=== PATIENT | male | born 1965 | race Caucasian/White ===

== ENCOUNTER 2023-05-23 23:16 | Emergency (ER) | payer MEDICAID, SELFPAY ==
[2023-05-23 23:46] VITALS: BP 141/91; PULSE 96; RESP 16; TEMP 37.1; O2SAT 98; BMI 21.5
[2023-05-24 02:00] VITALS: BP 176/96; PULSE 72; RESP 18; TEMP 36.7; O2SAT 98
--- NOTE | 2023-05-24 02:12 | ED.EAR ---
HPI - Ear Problem General Chief complaint: Ear Problems Stated complaint: ear inflammation Time Seen by Provider: 05/24/23 01:21 Source: patient Mode of arrival: ambulatory History of Present Illness HPI Narrative: 57-year-old male who arrives with bilateral swelling of pinnae and states that this has been ongoing for a week and a half and proximally a week and a half ago he went to [facility] for a similar issue, his ears were drained and a dressing was applied but then 2 days later patient noted that his ear started to swell up again. At this time he wants something for pain and is adamantly declining any blocks or injection of topical anesthetic for definitive drainage of the ears. Patient states that he will be following up with a ear, nose, throat specialist in the morning. Related Data Allergies Allergy/AdvReac Type Severity Reaction Status Date / Time No Known Allergies Allergy Unverified 01/10/20 15:40 bees Allergy Unknown Uncoded 03/16/11 00:00 Review of Systems Review of Systems: Pertinent positives and negatives as stated in HPI PMFSH Past Medical History Source: nursing notes reviewed Social History Social History Advance Directives: No Advance Directives Information Provided: No Physical Exam Vital Signs: Vital Signs: Last Vital Signs Temp 98.8 F 05/23/23 23:46 Pulse 96 05/23/23 23:46 Resp 16 05/23/23 23:46 BP 141/91 H 05/23/23 23:46 Pulse Ox 98 05/23/23 23:46 O2 Del Method Room Air 05/23/23 23:46 BMI result Body Mass Index 21.5 VITAL SIGNS: Reviewed. GENERAL: Well developed, well nourished, in no acute distress. HEAD: Normocephalic/atraumatic EYES: PERRLA, EOMI EARS: Ext canals without abnormality, TMs non-bulging and non-erythematous, but bilateral pinnae are edematous but not tense, no ecchymosis or other signs of trauma. NOSE: Nares patent bilateral OROPHARYNX: no oral lesions noted, posterior pharynx clear NECK: Supple, no adenopathy LUNGS: Normal breath sounds. No adventitious sounds or accessory muscle use. SpO2<98> CARDIOVASCULAR: Regular rate and rhythm without noted murmurs ABDOMEN: Soft, non-tender, non-distended with bowel sounds. MUSCULOSKELETAL: No tenderness, deformities, or effusions noted on gross inspection. EXTREMITIES: No cyanosis, clubbing or edema. SKIN: Inspection of the skin reveals no rashes NEUROLOGIC: Alert and oriented x 4. Strength and sensation to light touch were grossly intact x 4. Medical Decision Making Medical Decision Making MDM Narrative: 57-year-old male with atraumatic swelling of bilateral pinnae, patient is adamantly declining any acute intervention at this time and states that he will follow-up with a specialist in the morning, he otherwise is requesting pain medication and received 5 mg oxycodone. Differential Diagnosis Differential Diagnoses: The differential diagnosis associated with the presentation includes Please see the discussion above Admission/Observation Consideration of admission/observation: Escalation of care including admission/observation considered Please see the discussion above Discharge Plan Discharge Clinical Impression: Hematoma of both pinnae Patient Disposition: Home, Self-Care Instructions: Hematoma (ED) Additional Instructions: Please find the referral located below to follow-up with the Ear, Nose, Throat specialist in the morning. Referrals: Kristine Barber NP [Primary Care Provider] - Wil Yepez [Physician] -
[2023-05-24 02:19] VITALS: BP 171/92; PULSE 71
[2023-05-24] MEDS: oxyCODONE HCl Immed Release 5 MG TABLET PO (02:21)
--- NOTE | 2023-05-24 02:23 | PC.NURSE ---
pt medicated per jun. Dr. Desir aware of bp ok with d/c. pt axox4 ambulatory with steady gait. nad.
== END 2023-05-24 02:24 | disposition home or self-care (01) ==
PROVIDERS: Emergency Provider Student in an Organized Health Care Education/Training Program; PCP Nurse Practitioner
DX: S00.431A Contusion of right ear, initial encounter (principal); S00.432A Contusion of left ear, initial encounter; X58.XXXA Exposure to other specified factors, initial encounter; Y93.9 Activity, unspecified; Y92.9 Unspecified place or not applicable; Y99.9 Unspecified external cause status
CPT/HCPCS: 99283

== ENCOUNTER 2024-03-11 11:24 | Emergency (ER) | payer MEDICAID, SELFPAY ==
--- NOTE | 2024-03-11 11:29 | ED_ITS ---
HPI - Overdose General Chief Complaint: ETOH/Substance Use Stated Complaint: FOUND UNRESPONSIVE, DISORIENTED/?OD PER EMS Time Seen by Provider: 03/11/24 11:36 Source: patient and EMS Mode of arrival: EMS Limitations: no limitations History of Present Illness ED Provider: JONAS REECE PA-C HPI Narrative: 50-year-old male presents to the ED today via EMS after being found unresponsive. Per EMS, patient was found lying on the sidewalk by PD. Minimally responsive. EMS was called. Patient denying any illicit substances however in route to ED, EMS found a crack pipe and bag of heroin in patient's pocket. States that he was maintaining O2 saturation above 93% so Narcan was not given in route. No known trauma. On arrival in ED, patient dosing off however responsive to both verbal and occasionally painful stimuli. He admits to using heroin today. He is currently experiencing homelessness. Related Data Allergies Allergy/AdvReac Type Severity Reaction Status Date / Time No Known Allergies Allergy Verified 03/11/24 11:41 bees Allergy Unknown Anaphylaxis Uncoded 03/11/24 11:41 Review of Systems Review of Systems: Yes all other systems are reviewed and are negative [facility] Past Medical History Attestation statement: The following information was validated with the patient. Source: old records reviewed and nursing notes reviewed Social History Social History Advance Directives: No Advance Directives Information Provided: Yes Do you have a plan to hurt others: No Plan Physical Exam Vital Signs: Vital Signs: Last Vital Signs Pulse 92 03/11/24 11:39 Resp 12 03/11/24 11:39 BP 119/59 L 03/11/24 11:39 Pulse Ox 90 L 03/11/24 11:39 O2 Del Method Nasal Cannula 03/11/24 11:39 Oxygen Flow Rate 2 03/11/24 11:39 BMI result Body Mass Index 24.4 satting 90% on RA General: Disheveled, unkempt, dozing off Skin: Warm, dry, intact Head: Normocephalic, atraumatic. EENT: Hearing is intact b/l. Pinpoint pupils. Edentulous. ? Cardiac: Chest wall symmetric. RRR Lungs: Normal respiratory effort without accessory muscle use Back: No midline spinous or paraspinal tenderness. No step off deformity. Ext: Upper and lower extremities atraumatic, without tenderness, deformity, swelling or erythema Neuro: AOX3. responsive to verbal stimuli, occasionally painful stimuli when dozing off. Course Course Course Narrative: we gave him 0.2mg narcan now he is adamant he is leaving. he states he carries narcan with him. he absolutely refuses to stay, he is coherent he is aware he can overdose again but he will not stay for observation. He has no SI/HI. He states he has been through this before. He has no reason to section him and he is coherent and able to leave AMA. Medications Administered Discontinued Medications Generic Name Dose Route Start Last Admin Trade Name Joaquin PRN Reason Stop Dose Admin Naloxone HCl 0.2 mg 03/11/24 11:42 03/11/24 11:50 Naloxone Hcl 0.4 Mg/Ml Vial IVPUSH 03/11/24 11:43 0.2 mg STAT STA Administration Naloxone HCl 8 mg 03/11/24 11:52 03/11/24 11:58 Naloxone Hcl Nasal Take Home 4 Mg [place] NOSTRILALT 03/11/24 11:53 8 mg ONCE ONE Administration Ondansetron HCl 4 mg 03/11/24 11:32 03/11/24 11:49 Ondansetron Hcl 4 Mg/2 Ml Vial IVPUSH 03/11/24 11:33 4 mg ONCE ONE Administration Medical Decision Making Medical Decision Making MDM Narrative: 50-year-old male presents to the ED today via EMS after being found unresponsive. Vitals notable soft BP at 119/59, satting 90% on RA -- prior to narcan admin. refer to exam portion for findings. Differential diagnosis includes polysubstance abuse, drug overdose Plan for narcan admin and observation. Differential Diagnosis Differential Diagnoses: The differential diagnosis associated with the presentation includes as above. Admission/Observation Consideration of admission/observation: Escalation of care including admission/observation considered Considered for observation after narcan administration however patient adamant on leaving AMA. Social Determinants Patient?s care significantly limited by Social Determinants of Health including: Inadequate housing, Low income, Alcoholism and drug addiction in family, Problems related to primary support group, Problems related to employment and Other Social Determinant of Health Discharge Plan Discharge Clinical Impression: Overdose Patient Disposition: Left Against Medical Advice Instructions: Adult Overdose (ED) Additional Instructions: You were evaluated in the ED today after being found unresponsive. You were given Narcan in the ED today. You are declining further treatment or observation at this time and would like to leave the ED against medical advice. Please feel free to return to the ED with any new or worsening symptoms. You were provided with a take-home Narcan today. In the case of an emergency call 911. Stand Alone Forms: Against Medical Advice Print Language: Faroese
[2024-03-11 11:39] VITALS: BP 119/59; BP 145/77; PULSE 130; PULSE 92; RESP 12; O2SAT 90; BMI 24.4
[2024-03-11] MEDS: ondansetron HCL 4 MG/2 ML VIAL IVPUSH (11:49)
[2024-03-11] MEDS: Naloxone HCl 0.4 MG/ML VIAL 0.2 MG IVPUSH (11:50)
[2024-03-11] MEDS: Naloxone HCl Nasal TAKE HOME 4 MG SPRAY 8 MG NOSTRILALT (11:58)
[2024-03-11 12:20] VITALS: BP 0/0; PULSE 0; RESP 0; TEMP -17.7; TEMP 0
== END 2024-03-11 12:21 | disposition left against medical advice (07) ==
LOC: HO.ED 11:59
PROVIDERS: Emergency Provider Emergency Medicine; PCP Nurse Practitioner
DX: R40.4 Transient alteration of awareness (principal); T40.1X1A Poisoning by heroin, accidental (unintentional), initial encounter; Y92.480 Sidewalk as the place of occurrence of the external cause; F11.129 Opioid abuse with intoxication, unspecified; Z71.51 Drug abuse counseling and surveillance of drug abuser; Z59.00 Homelessness unspecified
CPT/HCPCS: 96374; 96375; 99284; J2310; J2405

== ENCOUNTER 2024-10-05 18:11 | Emergency (ER) | payer MEDICAID, SELFPAY ==
--- NOTE | ~2024-10-05 | XR_ITS ---
CLINICAL HISTORY: aspiration, OD, hypoxia 1 view chest x-ray Comparison: None Findings: Bilateral pulmonary opacities are nonspecific and may reflect pneumonitis and/or pulmonary edema. Pneumonitis favored at this time given asymmetry. Chronic lung disease with emphysematous changes also present. Mild elevation left hemidiaphragm. Cardiac silhouette and mediastinal contours are of the upper limits of the normal for AP technique. Calcified remnants of old granulomatous process noted in both hilar regions. Osseous structures are unremarkable for technique. IMPRESSION: Mild pulmonary opacities nonspecific and may reflect pneumonitis. Recommend attention on follow-up to ensure resolution. This document has been electronically signed by: Riky Bradley MD on 10/05/2024 19:12:18
[2024-10-05 18:18] VITALS: BP 160/100; PULSE 112
[2024-10-05 18:25] VITALS: PULSE 115; RESP 8; O2SAT 63; BMI 19.3
[2024-10-05] MEDS: Naloxone HCl Nasal 4 MG SPRAY NOSTRILALT (18:25)
--- NOTE | 2024-10-05 18:35 | ED.OVERDOSE ---
HPI - Overdose General Chief Complaint: Overdose Stated Complaint: drug use, no narcan given Time Seen by Provider: 10/05/24 18:26 History of Present Illness ED Provider: Gary Howe MD HPI Narrative: Came with EMS, OD felt to be opioid no naloxone in the field. Protecting airway but intermittently drowsy sleeping. Patient offers minimal history due to clinical condition complaint: accidental overdose Related Data Allergies Allergy/AdvReac Type Severity Reaction Status Date / Time No Known Allergies Allergy Verified 10/05/24 18:29 bees Allergy Unknown Anaphylaxis Uncoded 03/11/24 11:41 PENDING SALE TO [facility] Social History Social History Smoked in Last 30 Days: Yes Use of substances other than those prescribed or required for medical reasons: Yes Substance Use Type: Heroin Advance Directives: No Advance Directives Information Provided: Yes Physical Exam Vital Signs: Vital Signs: Last Vital Signs Temp 97.3 F 10/05/24 21:43 Pulse 72 10/05/24 21:43 Resp 16 10/05/24 21:43 BP 136/78 10/05/24 21:43 Pulse Ox 96 10/05/24 21:43 O2 Del Method Room Air 10/05/24 21:43 BMI result Body Mass Index 19.3 Const: Other: EXAM: Gen: Drowsy consistent with opioid toxidrome Head: Atraumatic Eyes: Pupils pinpoint ENT: Moist mucosa, no pallor. ? Neck: Supple. No obvious signs of trauma Skin: ?No observable rash or bruising on exposed or examined skin Respiratory: Slow breathing rate about 6 initially on arrival no crackles or wheeze Cardiovascular: Regular rate and rhythm. No murmurs or rub. Well perfused periphery, warm extremities. No edema. ? Abdominal: No FOCAL TENDERNESS. Soft, no objective distension. No palpable masses or obvious organomegaly. ?No guarding, no rebound tenderness or other peritoneal findings. : No flank tenderness. Neuro: Drowsy bradypnea MSK: No grossly visible deformity. Vital signs: See flowsheet Medications Administered Discontinued Medications Generic Name Dose Route Start Last Admin Trade Name Freq PRN Reason Stop Dose Admin Ibuprofen 600 mg 10/05/24 20:05 10/05/24 20:18 Ibuprofen 600 Mg Tablet PO 10/05/24 20:06 600 mg ONCE ONE Administration Naloxone HCl 4 mg 10/05/24 18:26 10/05/24 18:25 Naloxone Hcl Nasal 4 Mg [place] NOSTRILALT 10/05/24 18:27 4 mg ONCE ONE Administration Naloxone HCl 8 mg 10/05/24 21:21 10/05/24 21:38 Naloxone Hcl Nasal Take Home 4 Mg [place] NOSTRILALT 10/05/24 21:22 8 mg ONCE ONE Administration Medical Decision Making Medical Decision Making MDM Narrative: 59-year-old male with clear opioid toxidrome presentation upon my initial evaluation O2 60s I immediately administered 4 mg naloxone nasally and gave jaw thrust and oxygen supplementation he responded quite quickly inappropriately. He was monitored several hours after had a deescalation conversation with him because he wanted to leave the hospital immediately upon regaining consciousness. No obvious signs of injury. No clear metabolic derangement or other actionable findings on labs or workup. Naloxone to go pack Differential Diagnosis Differential Diagnoses: The differential diagnosis associated with the presentation includes Critical Care Time Critical Care Time Critical Care Time: Yes Total Critical Care Time: 30 Attestation: ED Critical Care: Acute hypoxic respiratory failure secondary to opioid overdose requiring parenteral naloxone reversal Authorized and Performed by: Gary Howe MD Total critical care time: Approximately 30 Due to a high probability of clinically significant, life threatening deterioration, the patient required my highest level of preparedness to intervene emergently and I personally spent this critical care time directly and personally managing the patient. This critical care time included obtaining a history; examining the patient; pulse oximetry; ordering and review of studies; arranging urgent treatment with development of a management plan; evaluation of patient's response to treatment; frequent reassessment; and, discussions with other providers. This critical care time was performed to assess and manage the high probability of imminent, life-threatening deterioration that could result in multi-organ failure. It was exclusive of separately billable procedures and treating other patients and teaching time. Discharge Plan Discharge Clinical Impression: Drug overdose Patient Disposition: Home, Self-Care Instructions: Adult Overdose (ED) Referrals: [facility] – [place] [facility] [Provider Group] Referral Note: Call for substance use disorder resources Interventions: ED Discharge Assessment Last Done: 10/05/24 21:43 Discharge Date/Time: 10/05/24 21:44 Print Language: Ivorian
[2024-10-05 20:00] VITALS: BP 136/78; PULSE 72; RESP 16; TEMP 36.3; O2SAT 96
[2024-10-05] MEDS: Ibuprofen 600 MG TABLET PO (20:18)
--- NOTE | 2024-10-05 21:07 | MHC.EDTECH ---
Patient refused to give urine and do blood work FROILAN Olvera
[2024-10-05] MEDS: Naloxone HCl Nasal TAKE HOME 4 MG SPRAY 8 MG NOSTRILALT (21:38)
--- NOTE | 2024-10-05 21:40 | PC.NURSE ---
pt d/c with x2 narcan and d/c instructions. Pt understands and walked out on his own with steady gate.
[2024-10-05 21:43] VITALS: BP 136/78; PULSE 72; RESP 16; TEMP 36.3; O2SAT 96
== END 2024-10-05 21:44 | disposition home or self-care (01) ==
PROVIDERS: Emergency Provider Emergency Medicine; PCP Internal Medicine
DX: T50.901A Poisoning by unspecified drugs, medicaments and biological substances, accidental (unintentional), initial encounter (principal); J96.91 Respiratory failure, unspecified with hypoxia; Y92.9 Unspecified place or not applicable
CPT/HCPCS: 71045; 99285

== ENCOUNTER → 2024-10-05 18:26 | Outpatient (BNV) | payer MEDICAID, SELFPAY | PROVIDERS: Emergency Provider Emergency Medicine; PCP Internal Medicine; Visit Provider Radiology Neuroradiology | DX: J69.0 Pneumonitis due to inhalation of food and vomit (principal); T50.901A Poisoning by unspecified drugs, medicaments and biological substances, accidental (unintentional), initial encounter; R09.02 Hypoxemia | CPT/HCPCS: 71045 ==

== ENCOUNTER 2024-10-30 15:06 | Emergency (ER) | payer MEDICAID, SELFPAY ==
--- NOTE | 2024-10-30 15:12 | ED_ITS ---
HPI - General Adult General Chief complaint: Overdose Stated complaint: OD/CRACK,NARCAN GIVEN W/GOOD RESULT Time Seen by Provider: 10/30/24 15:12 Source: patient and EMS Mode of arrival: EMS Limitations: no limitations History of Present Illness ED Provider: Aida Ivey PA-C HPI narrative: Patient is a 59 year old assigned male at with a history of opiate abuse / use presenting to the emergency department today after an accidental overdose. Patient states that he ingested 2 bags of heroin and was given Narcan by EMS. Patient states that he does not have any interest in remaining in the hospital or speaking with the recovery team. Patient states that he does not want a safe use kit because he does not use via IV. Patient states that he is willing to take Narcan with him. Patient denies any dizziness, lightheadedness, abdominal pain, nausea, vomiting, fever, chills, blurry vision, double vision, loss of vision, chest pain, difficulty breathing, shortness of breath, back pain, night sweats, pain with urination, increased urinary frequency, increased urinary urgency, blood in his urine or stool, syncope or a near syncopal episode, recent trauma or falls, bowel incontinence, bladder incontinence, or any other complaints at this time. Relieving factors: none Exacerbating factors: none Associated symptoms: denies other symptoms Treatments prior to arrival: other (6mg of Narcan) Related Data Allergies Allergy/AdvReac Type Severity Reaction Status Date / Time No Known Allergies Allergy Verified 10/30/24 15:24 bees Allergy Unknown Anaphylaxis Uncoded 10/30/24 15:24 Review of Systems Constitutional: Constitutional: Reports no additional constitutional complaints, Denies chills, Denies fever(s) and Denies night sweats Eyes: Eyes: Reports no additional eye complaints, Denies blurry vision, Denies change in vision, Denies diplopia, Denies eye discharge, Denies loss of vision and Denies eye pain ENT: Denies dizziness Cardiovascular: Cardiovascular: Reports no additional cardiovascular complaints, Denies chest pain, Denies lightheadedness, Denies Loss of Consciousness and Denies dyspnea Respiratory: Respiratory: Reports no additional respiratory complaints and Denies dyspnea Gastrointestinal: Gastrointestinal: Reports no additional gastrointestinal complaints, Denies abdominal pain, Denies melena, Denies hematochezia, Denies change in bowel habits and Denies change in stool character Genitourinary: Genitourinary: Reports no additional male genitourinary complaints, Denies hematuria, Denies oliguria, Denies difficulty urinating, Denies dysuria, Denies urinary frequency, Denies urinary hesitancy, Denies urinary incontinence and Denies urinary urgency Musculoskeletal: Musculoskeletal: Reports no additional musculoskeletal complaints, Denies numbness and Denies tingling Neurologic: Denies dizziness, Denies loss of vision, Denies numbness and Denies tingling Psychiatric: Psychiatric: Reports no additional psychiatric complaints Endocrine: Endocrine: Reports no additional endocrine complaints Hematologic/Lymphatic: Hematologic/Lymphatic: Reports no additional hematologic/lymphatic complaints Allergic/Immunologic: Allergic/Immunologic: Reports no additional allergic/immunologic complaints PMFSH Past Medical History Attestation statement: The following information was validated with the patient. Source: old records reviewed and nursing notes reviewed Social History Social History Substance Use Type: Heroin Do you have a plan to hurt others: No Plan Physical Exam ED Vital Signs: Vital Signs - 24 hr 10/30/24 15:20 Temperature 98.0 F Pulse Rate 85 Respiratory Rate 18 Blood Pressure 119/85 Pulse Oximetry 97 Oxygen Delivery Method Room Air BMI result Body Mass Index 21.6 Const General: cooperative, no acute distress, alert and awake Nutritional Appearance: well nourished Orientation/consciousness: patient oriented x3 HENMT Head: Yes normal to inspection and Yes atraumatic Ears: hearing grossly normal bilaterally and external ears normal General nose exam: Normal external nose present, no nasal discharge noted and no epistaxis Face and sinus: Yes normal facial exam, No abrasion and No laceration Mouth: Normal oral and palatal mucosa present, no drooling and no muffled voice Eyes General: appearance normal, both eyes and all related structures Periorbital: periorbital findings normal Eyelids: Yes eyelids normal Conjunctivae: conjunctivae normal Pupils: Equal, round and reactive pupils present EOM: EOMs intact bilaterally Neck Neck: Yes normal visual inspection, Yes full ROM and Yes no lymphadenopathy Resp Effort & Inspection: normal respiratory effort and able to speak in complete sentences Neuro General: patient oriented x3, moves all extremities and CN's II-XI intact bilaterally Cranial nerves: Yes Equal, round and reactive pupils present Cognition (Neuro): normal cognition Extrem General: Yes normal to inspection, Yes full ROM and Yes capillary refill normal Psych Appearance: grossly normal Mental Status: mental status grossly normal Affect: normal affect Attitude: cooperative Thought process: Normal thought process present Thought content: Normal thought content present Insight: Good insight present (Psych) Medical Decision Making Medical Decision Making MDM Narrative: Patient is a 59 year old assigned male at with a history of opiate abuse / use presenting to the emergency department today after an accidental overdose. Patient's physical exam was unremarkable. I explained my physical exam findings to the patient. I answered all questions asked by the patient. Patient declined speaking to the recovery team or CARE team. Patient declined any assistance other than Narcan. I stressed the importance of the patient taking his medication as directed (either prescribed or as the over the counter packaging recommends). I stressed the importance of the patient following up with his primary care provider. I stressed the importance of the patient returning to the emergency department immediately if his symptoms were to worsen or if he were to develop any dizziness, shortness of breath, difficulty breathing, chest pain, blurry vision, loss of vision, nausea, vomiting, abdominal pain, fever, chills, back pain, or any other complaints. Patient verbalized agreement and understanding with this treatment plan and discharge. Differential Diagnosis Differential Diagnoses: The differential diagnosis associated with the presentation includes Overdose Accidental overdose Admission/Observation Consideration of admission/observation: Escalation of care including admission/observation considered Patient would have been admitted to the hospital had his clinical presentation warranted hospital admission. Independent Historian Clinical information obtained from an independent historian. History obtained from or confirmed by: EMS (EMS provided additional history and confirmed the history provided by the patient. ) Discharge Plan Discharge Clinical Impression: Opiate overdose Qualifiers: Encounter type: initial encounter Injury intent: accidental or unintentional Qualified Code(s): T40.601A - Poisoning by unspecified narcotics, accidental (unintentional), initial encounter Patient Disposition: Home, Self-Care Instructions: Opioid Safety (ED), Opioid Use Disorder (ED) Additional Instructions: You were seen in our Emergency Department today for treatment of opiate use disorder. You were given naloxone (narcan) to take home with you. This medication is used to potentially treat opiate overdose. If you decide you want to stop or cut down on how much you?re using, you can call or walk into our outpatient Addiction Treatment office: [facility] (M-F 9am-5p) [address] [place] [address], [address] You were also provided a list of several treatment providers in the area.? If you experience any worsening symptoms you cannot control please return to the ED or call 911. Follow up with a primary care provider. Return to the emergency department immediately if you develop any numbness, tingling, dizziness, shortness of breath, difficulty breathing, chest pain, blurry vision, loss of vision, nausea, vomiting, abdominal pain, fever, chills, back pain, or any other complaints. If you do not have a primary care provider - call any of the below numbers to establish and follow up with a primary care provider. [facility] ([place]) [phone] [place] [address], [address] [facility] ([address] [place]) [phone] [place] [address], [address] [facility], [address] [facility] ([address] [place]) [phone] [place] [address], [address] [facility], [address] [facility] ([place]) [phone] [place] [address], [address] [facility], [address] [facility] Family Medicine [phone] [address] [facility], [address] Please see the information below about our Patient Portal. If you are not yet enrolled in the [facility] Patient Portal, you will receive an enrollment email invitation following your visit to any [facility] [place] care setting. You may also self-enroll in the Patient Portal by visiting our website: [email or web address] The following information is required to access the Patient Portal: - Your [facility] Medical Record Number - Your personal home email address (must match what is in your electronic medical record, Registration staff can assist with this) - Name - Date of Capabilities of the Patient Portal: - Message some providers - View upcoming appointments - Access your health summary, medical history, and visit history - View current conditions and allergies - View procedure and lab results - View your medications, including guidelines, side effects, and precautions - Complete pre-appointment questionnaires requested by your provider - Ready summary reports of your office visits and procedures To access the Patient Portal Mobile [employer], follow these directions: - Search [employer] in the [employer] Store or [employer] Store - Download the [employer] - Search for [facility] - Enter your login/password Print Language: Kazakh
[2024-10-30 15:20] VITALS: BP 119/85; BP 136/76; PULSE 108; PULSE 85; RESP 18; TEMP 36.7; O2SAT 97; O2SAT 98; BMI 21.6
[2024-10-30 15:32] VITALS: BP 119/85; PULSE 85; RESP 18; TEMP 36.7; O2SAT 97
[2024-10-30] MEDS: Naloxone HCl Nasal TAKE HOME 4 MG SPRAY 8 MG NOSTRILALT (15:32)
== END 2024-10-30 16:00 | disposition home or self-care (01) ==
LOC: HO.ED 15:39
PROVIDERS: Emergency Provider Emergency Medicine Emergency Medical Services; PCP Internal Medicine
DX: T40.1X1A Poisoning by heroin, accidental (unintentional), initial encounter (principal); F11.10 Opioid abuse, uncomplicated; Y92.9 Unspecified place or not applicable
CPT/HCPCS: 99282; 99283

== ENCOUNTER 2024-11-18 23:39 | Inpatient (IN) | payer MEDICAID, SELFPAY ==
--- NOTE | ~2024-11-18 | XR_ITS ---
CLINICAL HISTORY: sob 1 view chest x-ray Comparison: CR - XR CHEST 1V - 10/05/24 18:36 EDT Findings: Right basilar opacity concerning for pneumonia. Trace right pleural effusion. No pneumothorax. Heart size is normal. No acute fracture. IMPRESSION: Right basilar opacity concerning for pneumonia with trace right pleural effusion This document has been electronically signed by: Tong Martinez MD on 11/19/2024 00:22:50
[2024-11-18 23:45] VITALS: BP 128/101; BP 142/100; PULSE 65; PULSE 90; RESP 16; TEMP 36.6; O2SAT 98; O2SAT 99; BMI 24.2
--- NOTE | 2024-11-18 23:49 | ECG_ITS ---
Test Reason : SOB Blood Pressure : */* mmHG Vent. Rate : 62 BPM Atrial Rate : 62 BPM P-R Int : 118 ms QRS Dur : 92 ms QT Int : 504 ms P-R-T Axes : 73 36 -30 degrees QTcB Int : 511 ms Normal sinus rhythm T wave abnormality, consider anterior ischemia Abnormal ECG When compared with ECG of 06-May-2013 08:28, Vent. rate has decreased by [address] no longer depressed in Anterior leads Nonspecific T wave abnormality now evident in Inferior leads T wave inversion now evident in Anterior leads Referred By: Generic ED Physician Electronically Signed By: LUIS MIGUEL QUINTANILLA MD
[2024-11-19] VITALS (11 sets, daily range): BP systolic 102–168; BP diastolic 70–101; PULSE 65–94; RESP 12–22; TEMP 36.6–36.8; O2SAT 95–99
[2024-11-19] LABS: MANUAL DIFF FLAG NO
[2024-11-19 00:01] LABS: Hematocrit 38.2 % (42.0-52.0); Hemoglobin 12.3 g/dl (14.0-18.0); Imm Gran Abs Auto 0.04 X10*3/uL (0.00-0.03); Imm Gran Pct Auto 0.3 % (0.0-0.4); Lymphocytes Absolute Auto 1.4 X10*3/uL (1.2-4.9); Mean Corpuscular HGB Conc 32.2 g/dl (31.0-36.0); Mean Corpuscular Hemoglobin 29.3 pg (27.0-33.0); Mean Corpuscular Volume 91.0 fL (80.0-98.0); NRBC Abs Auto 0.000 X10*3/uL (0.0-0.012); NRBC Pct Auto 0.0 /100WBC (0.0-0.2); Platelet Count 479 X10*3/uL (160-400); Red Blood Count 4.20 X10*6/uL (4.60-5.80); White Blood Count 13.5 X10*3/uL (4.8-10.8)
[2024-11-19 00:14] LABS: Anion Gap 15 (12-20); Blood Urea Nitrogen 22 mg/dL (9-16); Calcium 7.7 mg/dL (8.4-10.2); Carbon Dioxide 22 mmol/L (22-29); Chloride 106 mmol/L (96-108); Creatinine Clr Calc Pharmacy 84.3; Estimated Glomerular Filt Rate > 60; Magnesium 1.7 mg/dL (1.6-2.6); Potassium 4.1 mmol/L (3.3-5.1); Sodium 139 mmol/L (135-145)
[2024-11-19 00:20] LABS: Troponin-I High Sensitivity 30.9 ng/L (<3.5-35.0)
[2024-11-19 00:37] LABS: Resp Syncy Virus RNA Qual PCR NEGATIVE (Negative); SARS COV2 PCR INHOUSE NEGATIVE (Negative)
[2024-11-19] MEDS: Albuterol Sulfate 5 MG, Albuterol Sulfate (0.083%) 2.5 MG 7.5 MG INHALE (00:40)
[2024-11-19 00:50] LABS: B Type Natriuretic Peptide 4571 pg/mL (<100)
[2024-11-19 01:07] LABS: Venous Blood Gas Refer to POC result
[2024-11-19 01:11] LABS: VBG HCO3 25 mmol/L (22-26); VBG O2 % Saturation 71.0 %
--- NOTE | 2024-11-19 01:24 | ED_ITS ---
HPI - SOB/Dyspnea General Chief Complaint: Dyspnea Stated Complaint: SOB Time Seen by Provider: 11/19/24 00:05 Source: patient and EMS Mode of arrival: EMS Limitations: no limitations History of Present Illness ED Provider: Dr. Anna Harmon HPI Narrative: Patient comes to the emergency room complaining of shortness of breath, states that he has been coughing all day today and wheezing. According to the patient, he does not have history of asthma or COPD or CHF When patient came, he was given a nebulization treatment. Patient states that he feels a bit better. But patient states that if he gets up and walks, he feels extremely short of breath within walking a few steps. Patient denies any chest pain. Related Data Allergies Allergy/AdvReac Type Severity Reaction Status Date / Time bees Allergy Unknown Anaphylaxis Uncoded 11/18/24 23:47 Review of Systems 2 Review of Systems: Constitutional : No Weight loss, No Fever, No Chills, No Night Sweats, No Fatigue, No Malaise ENT/Mouth : No Hearing loss, No Ear Pain, No Nasal Congestion, No Sinus Pain, No Hoarseness, No sore throat, No Rhinorrhea, No Swallowing Difficulty Eyes: No Eye Pain, No Swelling, No Redness, No Foreign Body, No Discharge, No Vision Changes Cardiovascular : No Chest Pain, complaining of shortness of breath much worse with exertion, complaining of orthopnea Respiratory : Complaining of cough, wheezing and shortness of breath Gastrointestinal : No Nausea, No Vomiting, No Diarrhea, No Constipation, No abdominal Pain, No Hematochezia, No Melena Genitourinary : no irregular bleeding, No Dysuria, No Urinary Frequency, No Hematuria, No Urinary Incontinence, No Urgency, No Flank Pain, No Urinary Flow Changes, No Hesitancy Musculoskeletal : No joint pain, No Myalgias, No Joint Swelling Skin : No Skin Lesions, No rash Neuro : No Weakness, No Numbness, No Paresthesias, No Loss of Consciousness, No Dizziness, No Headache Psych : No Anxiety/Panic, No Depression, No SI/HI/AH/VH, No Social Issues, Heme/Lymph: No Bruising, No Bleeding,No Lymphadenopathy Endocrine : No Polyuria, No Polydipsia, No Temperature Intolerance PMFSH Social History Social History Use of substances other than those prescribed or required for medical reasons: Yes Substance Use Type: Crack/Cocaine and Heroin Substance Use Frequency: Chronic Longstanding Advance Directives: No Advance Directives Information Provided: No Physical Exam 2 Exam: Exam: Appearance: Alert. Oriented X3. No acute distress. Eyes: Pupils equal, round and reactive to light. ENT: Pharynx normal. Neck: Normal inspection. Neck supple. No lymph nodes noted. No crepitus CVS: Normal heart rate and rhythm. Pulses normal. Normal S1 and S2 Respiratory: No respiratory distress. Bilateral wheezing, bilateral lower lobe crackles, no rales Abdomen: Soft and nontender. No rigidity. No distention. Skin: Skin warm and dry. Normal skin color. Normal skin turgor. Extremities: +1 pitting edema bilaterally No Lacerations. No Rash Neuro: Oriented X 3. No motor deficit. No sensory deficit. Moving all extremities. No slurred speech. CN 2 through 12 grossly intact Psych: calm, cooperative, normal affect Vital Signs: Vital Signs: Last Vital Signs Temp 97.9 F 11/19/24 00:06 Pulse 65 11/19/24 00:06 Resp 16 11/19/24 00:06 BP 128/101 H 11/19/24 00:06 Pulse Ox 99 11/19/24 00:06 O2 Del Method Room Air 11/19/24 00:06 BMI result Body Mass Index 24.2 Course Course Course Narrative: Patient comes in complaining of shortness of breath, cough, wheezing. To patient's knowledge, he has never been diagnosed with either COPD or CHF. Patient admits that he smokes All of patient's labs pending Patient receiving IV fluids, Solu-Medrol, magnesium, antibiotics. Medications Administered Generic Name Dose Route Start Last Admin Trade Name Freq PRN Reason Stop Dose Admin Azithromycin 500 mg/ Sodium 250 mls @ 125 mls/hr 11/19/24 00:23 11/19/24 00:59 Chloride IV 11/19/24 02:22 125 mls/hr ONCE ONE Administration Discontinued Medications Generic Name Dose Route Start Last Admin Trade Name Freq PRN Reason Stop Dose Admin Albuterol Sulfate 5 mg/ 7.5 mg 11/19/24 00:38 11/19/24 00:40 Albuterol Sulfate 2.5 mg INHALE 11/19/24 00:39 7.5 mg ONCE ONE Administration Ceftriaxone Sodium 1 gm 11/19/24 00:23 11/19/24 00:56 Ceftriaxone Sodium 1 Gm Vial IVPUSH 11/19/24 00:24 1 gm ONCE ONE Administration Sodium Chloride 1,000 mls @ 999 mls/hr 11/19/24 00:23 11/19/24 01:02 Ns IVCONT 11/19/24 01:23 Infused .Q1H1M ONE Infusion Methylprednisolone Sodium Succinate 125 mg 11/19/24 00:23 11/19/24 00:55 Methylprednisolone Sod Succ 125 Mg/2 Ml Vial IVPUSH 11/19/24 00:24 125 mg ONCE ONE Administration Medical Decision Making Medical Decision Making [facility] Narrative: My interpretation of labs: Patient's white blood cell count 13.5, no significant abnormality in patient's electrolytes, lactic 2.3. Likely secondary to nebulization treatments. Patient's BNP is 4571. Patient's fluids were started however, when we got the results for the BNP, they were discontinued. Patient already received antibiotics and the steroids and Mag. Patient states that he is starting to feel better. Patient states that he feels very reluctant about trying to get up and walk because he knows he feels short of breath rapidly and takes him a long time to recover. X-ray show right basilar opacity concerning for pneumonia and trace right pleural effusion. Patient states that he has never had an echocardiogram, does not have a PCP, patient is homeless. I discussed the above-mentioned with Dr. Godoy from the Medicine team, patient being admitted Differential Diagnosis Differential Diagnoses: The differential diagnosis associated with the presentation includes (New onset COPD, new onset CHF, pneumonia) Admission/Observation Consideration of admission/observation: Escalation of care including admission/observation considered Consult Healthcare Provider Management of the patient was discussed with: Hospitalist Lab Data [facility] Lab Attestation statement: I reviewed the patient's lab results. 11/18/24 23:54 11/18/24 23:54 Labs: Lab Results 11/18/24 11/18/24 11/19/24 Range/Units 23:54 23:56 00:42 WBC 13.5 H (4.8-10.8) X10*3/uL RBC 4.20 L (4.60-5.80) X10*6/uL Hgb 12.3 L (14.0-18.0) g/dl Hct 38.2 L (42.0-52.0) % MCV 91.0 (80.0-98.0) fL MCH 29.3 (27.0-33.0) pg MCHC 32.2 (31.0-36.0) g/dl RDW 16.3 H (11.0-16.0) % Plt Count 479 H (160-400) X10*3/uL MPV 9.5 (9.4-12.4) fL Immature Gran % (Auto) 0.3 (0.0-0.4) % Neut % (Auto) 81.8 H (45-73) % Lymph % (Auto) 10.3 L (20-40) % [place] % (Auto) 6.3 (2-11) % Eos % (Auto) 0.8 (0-4) % Baso % (Auto) 0.5 (0-2) % Lymph # (Auto) 1.4 (1.2-4.9) X10*3/uL [place] # (Auto) 0.9 (0.1-1.2) X10*3/uL Eos # (Auto) 0.1 (0.0-0.4) X10*3/uL Baso # (Auto) 0.1 (0.0-0.2) X10*3/uL Abs Immat Gran (auto) 0.04 H (0.00-0.03) X10*3/uL Absolute Neuts (auto) 11.1 H (2.0-8.3) x10*3/uL Absolute Nucleated RBC 0.000 (0.0-0.012) X10*3/uL Nucleated RBC % (auto) 0.0 (0.0-0.2) /100WBC VBG pH (7.32-7.43) VBG pCO2 mmHg VBG pO2 mmHg VBG HCO3 (22-26) mmol/L VBG O2 Saturation % VBG Base Excess mmol/L Sodium 139 (135-145) mmol/L Potassium 4.1 (3.3-5.1) mmol/L Chloride 106 (96-108) mmol/L Carbon Dioxide 22 (22-29) mmol/L Anion Gap 15 (12-20) BUN 22 H (9-16) mg/dL Creatinine 0.82 (0.5-1.4) mg/dL Estim Creat Clear Calc 84.3 Estimated GFR > 60 Random Glucose 172 H (60-115) mg/dL Lactic Acid 2.3 H* (0.5-2.0) mmol/L Calcium 7.7 L (8.4-10.2) mg/dL Magnesium 1.7 (1.6-2.6) mg/dL Troponin I High Sens 30.9 (<3.5-35.0) ng/L B-Natriuretic Peptide 4571 H (<100) pg/mL Influenza Type A (PCR) NEGATIVE (Negative) Influenza Type B (PCR) NEGATIVE (Negative) RSV RNA Qual (PCR) NEGATIVE (Negative) SARS-CoV-2 RNA (RT-PCR) NEGATIVE (Negative) 11/19/24 Range/Units 01:06 WBC (4.8-10.8) X10*3/uL RBC (4.60-5.80) X10*6/uL Hgb (14.0-18.0) g/dl Hct (42.0-52.0) % MCV (80.0-98.0) fL MCH (27.0-33.0) pg MCHC (31.0-36.0) g/dl RDW (11.0-16.0) % Plt Count (160-400) X10*3/uL MPV (9.4-12.4) fL Immature Gran % (Auto) (0.0-0.4) % Neut % (Auto) (45-73) % Lymph % (Auto) (20-40) % [place] % (Auto) (2-11) % Eos % (Auto) (0-4) % Baso % (Auto) (0-2) % Lymph # (Auto) (1.2-4.9) X10*3/uL [place] # (Auto) (0.1-1.2) X10*3/uL Eos # (Auto) (0.0-0.4) X10*3/uL Baso # (Auto) (0.0-0.2) X10*3/uL Abs Immat Gran (auto) (0.00-0.03) X10*3/uL Absolute Neuts (auto) (2.0-8.3) x10*3/uL Absolute Nucleated RBC (0.0-0.012) X10*3/uL Nucleated RBC % (auto) (0.0-0.2) /100WBC VBG pH 7.29 L (7.32-7.43) VBG pCO2 51 mmHg VBG pO2 54 mmHg VBG HCO3 25 (22-26) mmol/L VBG O2 Saturation 71.0 % VBG Base Excess -2.0 mmol/L Sodium (135-145) mmol/L Potassium (3.3-5.1) mmol/L Chloride (96-108) mmol/L Carbon Dioxide (22-29) mmol/L Anion Gap (12-20) BUN (9-16) mg/dL Creatinine (0.5-1.4) mg/dL Estim Creat Clear Calc Estimated GFR Random Glucose (60-115) mg/dL Lactic Acid (0.5-2.0) mmol/L Calcium (8.4-10.2) mg/dL Magnesium (1.6-2.6) mg/dL Troponin I High Sens (<3.5-35.0) ng/L B-Natriuretic Peptide (<100) pg/mL Influenza Type A (PCR) (Negative) Influenza Type B (PCR) (Negative) RSV RNA Qual (PCR) (Negative) SARS-CoV-2 RNA (RT-PCR) (Negative) Independent Interpretation I performed an independent interpretation of an: Plain X-Ray Radiology Impression Discussion of test interpretation with radiology: I have reviewed the radiologist's reading. Radiologist Impression: Right basilar opacity concerning for pneumonia. Trace right pleural effusion. No pneumothorax. Heart size is normal. No acute fracture. Critical Care Time Critical Care Time Critical Care Time: Yes Total Critical Care Time: 60 Attestation: I have personally provided critical care time. Time includes review of lab data, radiology results, discussion with consultants, and monitoring for potential decompensation. Intervention performed as documented. Discharge Plan Discharge Clinical Impression: Chronic lung disease, New onset of congestive heart failure, Pneumonia Patient Disposition: Admitted As Inpatient Print Language: Mohawk
[2024-11-19] MEDS: Furosemide 20 MG/2 ML VIAL IVPUSH ×2 (01:57→14:25)
--- NOTE | 2024-11-19 01:58 | P.HPHOSP_ITS ---
History of Present Illness Date of Service: 11/19/24 <JACI Garza Last Filed: 11/19/24 02:14> Attending physician on admission: Elo Velazquez <JACI Garza Last Filed: 11/19/24 02:14> Chief Complaint: Cough/shortness of breath <JAIC Garza Last Filed: 11/19/24 02:14> Patient is a 59-year-old male with a past medical history significant for homelessness, seizure disorder unspecified (last seizure about 1 year ago, diagnosed 15 years ago, patient reports occurs with changes of the seasons), and smoker, who presented to the ED due to cough and worsening shortness of breath with exertion for the past few days. The patient reports that he has been smoking for the past 50 years but has no underlying diagnosed COPD or asthma. He has been wheezing but has had improvement with Solu-Medrol and DuoNeb. Patient reports multiple recent tick bites but no rash. He reports 1 of the tick bites was engorged and was likely on for a few days. He has had a productive cough but denies any fever, chills, nausea or vomiting. He denies any abdominal pain or urinary symptoms. He also notes pitting edema for the past few days which is new for him. He has no diagnosis of congestive heart failure that he knows of. The patient is homeless and reports that he does not have routine medical care. He smokes about 1.5 packs of cigarettes a day and uses heroin and crack cocaine regularly. <JACI Garza Last Filed: 11/19/24 02:14> Review of Systems 2 Constitutional: Constitutional: Denies body ache(s), Denies chills, Denies fatigue, Denies fever(s) and Denies headache(s) <JAIC Garza Last Filed: 11/19/24 02:14> Eyes: Eyes: Denies change in vision <JACI Garza Last Filed: 11/19/24 02:14> ENT: Denies headache(s) and Denies nasal congestion <JACI Garza Filed: 11/19/24 02:14> Cardiovascular: Cardiovascular: Denies chest pain, Denies rapid heart rate, Reports leg edema, Denies lightheadedness and Reports dyspnea <Tami Romero PA-C - Last Filed: 11/19/24 02:14> Respiratory: Respiratory: Reports cough, Reports dyspnea and Reports wheezing <Tami Romero PA-C - Last Filed: 11/19/24 02:14> Gastrointestinal: Gastrointestinal: Denies abdominal pain, Denies nausea and Denies vomiting <Tami Romero PA-C - Last Filed: 11/19/24 02:14> Genitourinary: Genitourinary: Denies dysuria, Denies urinary frequency and Denies urinary urgency <Tami Romero PA-C - Last Filed: 11/19/24 02:14> Musculoskeletal: Musculoskeletal: Denies myalgias <JACI Garza Last Filed: 11/19/24 02:14> Integumentary/Breasts: Skin/Breast: Denies rash <Tami Romero PA-C - Last Filed: 11/19/24 02:14> Neurologic: Denies confusion and Denies headache(s) <Tami Romero PA-C Last Filed: 11/19/24 02:14> Psychiatric: Psychiatric: Denies confusion <Tami Romero PA-C Last Filed: 11/19/24 02:14> Endocrine: Endocrine: Denies fatigue <Tami Romero PA-C Last Filed: 11/19/24 02:14> Hematologic/Lymphatic: Hematologic/Lymphatic: Denies easy bleeding and Denies easy bruising <Tami Romero PA-C - Last Filed: 11/19/24 02:14> Allergic/Immunologic: Allergic/Immunologic: Reports wheezing <Tami Romero PA-C - Last Filed: 11/19/24 02:14> [facility] Medical History: Medical History Homelessness Tobacco use disorder Seizures <JACI Garza Last Filed: 11/19/24 02:14> Functional capacity: independent ambulation <Tami Romero PA-C - Last Filed: 11/19/24 02:14> Social History: Social History Use of substances other than those prescribed or required for medical reasons: Yes Substance Use Type: Crack/Cocaine and Heroin Substance Use Frequency: Chronic Longstanding Advance Directives: No Advance Directives Information Provided: No <Tami Romero PA-C - Last Filed: 11/19/24 02:14> Narrative: Smokes 1.5 packs of cigarettes per day, no alcohol. Uses heroin and crack cocaine regularly. Denies IV drug use. <Tami Romero PA-C - Last Filed: 11/19/24 02:14> Meds Allergies/Adverse reactions: Allergies Allergy/AdvReac Type Severity Reaction Status Date / Time bees Allergy Unknown Anaphylaxis Uncoded 11/18/24 23:47 <Tami Romero PA-C - Last Filed: 11/19/24 02:14> Active Medications: Current Medications Acetaminophen (Acetaminophen 325 Mg Tablet) 975 mg PO Q6H PRN PRN Reason: Pain, Mild 1-3,fever,headache Albuterol/Ipratropium (Albuterol/Iprat 2.5/0.5mg 3 Ml Ampul.Neb) 3 ml INHALE RQ4H WHILE AWAKE ISAMAR Calcium Carbonate (Calcium Carbonate 750 Mg Tab.Chew) 750 mg PO Q4H PRN PRN Reason: Heartburn Ceftriaxone Sodium (Ceftriaxone Sodium 1 Gm Vial) 1 gm IVPUSH Q24H ISAMAR Enoxaparin Sodium (Enoxaparin Sodium 40 Mg/0.4 Ml Syringe) 40 mg SUBCUT Q24H ISAMAR Azithromycin 500 mg/ Sodium (Chloride) 250 mls @ 125 mls/hr IV ONCE ONE Stop: 11/19/24 02:22 Last Admin: 11/19/24 00:59 Dose: 125 mls/hr Doxycycline Hyclate 100 mg/ (Sodium Chloride) 250 mls @ 166.67 mls/hr IV BID ISAMAR Magnesium Hydroxide (Milk Of Magnesia 30 Ml Oral.Susp) 30 ml PO DAILY PRN PRN Reason: Constipation Melatonin (Melatonin 3 Mg Tablet) 6 mg PO BEDTIME PRN PRN Reason: Insomnia Methylprednisolone Sodium Succinate (Methylprednisolone Sod Succ 125 Mg/2 Ml Vial) 60 mg IVPUSH BID ISAMAR Oxycodone HCl (Oxycodone Hcl Immed Release 5 Mg Tablet) 5 mg PO Q6H PRN PRN Reason: Pain, Severe (Pain Scale 7-10) Sodium Chloride (0.9 % Sodium Chloride Flush 3 Ml Syringe) 3 ml IVFLUSH QSHIFT ISAMAR Tramadol HCl (Tramadol Hcl 50 Mg Tablet) 50 mg PO Q6H PRN PRN Reason: Pain, Moderate(Pain Scale 4-6) <Tami Romero PA-C - Last Filed: 11/19/24 02:14> Physical Exam 2 Vital Signs and Narrative: Vital Signs: Last Vital Signs Temp 97.9 F 11/19/24 00:06 Pulse 70 11/19/24 01:54 Resp 12 11/19/24 01:54 BP 107/72 11/19/24 01:57 Pulse Ox 95 11/19/24 01:54 O2 Del Method Room Air 11/19/24 01:54 BMI result Body Mass Index 24.2 <Tami Romero PA-C - Last Filed: 11/19/24 02:14> General: AOx3, no acute distress, sitting upright, no conversational dyspnea. Resp: Significant wheezing, rhonchorous CVS: S1, S2, RRR GI: +BS, NT, no distention Skin: Warm, dry Neuro: Cranial nerves II-XII grossly intact bilaterally. Motor grossly intact bilaterally Extremities: Trace pitting edema Psych: Appropriate affect <Tami Romero PA-C - Last Filed: 11/19/24 02:14> Const: General: No confusion <JACI Garza Last Filed: 11/19/24 02:14> Orientation/consciousness: No confusion <JACI Garza Last Filed: 11/19/24 02:14> Neuro: General: No confusion <Tami Romero PA-C - Last Filed: 11/19/24 02:14> Results Labs CBC and Chem 7: 11/19/24 03:40 11/19/24 03:40 <JACI Garza Last Filed: 11/19/24 02:14> Labs: Laboratory Results - last 24 hr 11/18/24 11/18/24 11/19/24 23:54 23:56 00:42 MCV 91.0 MCH 29.3 MCHC 32.2 RDW 16.3 H Plt Count 479 H MPV 9.5 Immature Gran % (Auto) 0.3 Neut % (Auto) 81.8 H Lymph % (Auto) 10.3 L Hard[place] % (Auto) 6.3 Eos % (Auto) 0.8 Baso % (Auto) 0.5 Lymph # (Auto) 1.4 Harding # (Auto) 0.9 Eos # (Auto) 0.1 Baso # (Auto) 0.1 Abs Immat Gran (auto) 0.04 H Absolute Neuts (auto) 11.1 H Absolute Nucleated RBC 0.000 Nucleated RBC % (auto) 0.0 VBG pH VBG pCO2 VBG pO2 VBG HCO3 VBG O2 Saturation VBG Base Excess Anion Gap 15 Estim Creat Clear Calc 84.3 Estimated GFR > 60 Random Glucose 172 H Lactic Acid 2.3 H* Calcium 7.7 L Magnesium 1.7 B-Natriuretic Peptide 4571 H Influenza Type A (PCR) NEGATIVE Influenza Type B (PCR) NEGATIVE RSV RNA Qual (PCR) NEGATIVE SARS-CoV-2 RNA (RT-PCR) NEGATIVE 11/19/24 01:06 MCV MCH MCHC RDW Plt Count MPV Immature Gran % (Auto) Neut % (Auto) Lymph % (Auto) Harding % (Auto) Eos % (Auto) Baso % (Auto) Lymph # (Auto) Harding # (Auto) Eos # (Auto) Baso # (Auto) Abs Immat Gran (auto) Absolute Neuts (auto) Absolute Nucleated RBC Nucleated RBC % (auto) VBG pH 7.29 L VBG pCO2 51 VBG pO2 54 VBG HCO3 25 VBG O2 Saturation 71.0 VBG Base Excess -2.0 Anion Gap Estim Creat Clear Calc Estimated GFR Random Glucose Lactic Acid Calcium Magnesium B-Natriuretic Peptide Influenza Type A (PCR) Influenza Type B (PCR) RSV RNA Qual (PCR) SARS-CoV-2 RNA (RT-PCR) <Tami Romero PA-C - Last Filed: 11/19/24 02:14> Assessment and Plan (1) Acute respiratory acidosis: Status: Acute <Tami Romero PA-C - Last Filed: 11/19/24 02:14> (2) Pneumonia: Status: Acute <MARIA TERESA GarzaC - Last Filed: 11/19/24 02:14> (3) COPD with acute exacerbation: Status: Acute <MARIA TERESA GarzaC - Last Filed: 11/19/24 02:14> (4) New onset of congestive heart failure: Status: Acute <MARIA TERESA GarzaC - Last Filed: 11/19/24 02:14> (5) Anemia: Status: Acute <LUCIANA Garza-C - Last Filed: 11/19/24 02:14> (6) Tobacco use disorder: Status: Acute <Tami Romero PA-C - Last Filed: 11/19/24 02:14> (7) Substance use disorder: Status: Acute <MARIA TERESA GarzaC - Last Filed: 11/19/24 02:14> Patient is a 59-year-old male with a past medical history significant for homelessness, seizure disorder unspecified (last seizure about 1 year ago, diagnosed 15 years ago, patient reports occurs with changes of the seasons), and smoker, who presented to the ED due to cough and worsening shortness of breath with exertion for the past few days. Acute respiratory acidosis with pneumonia and acute COPD exacerbation with new onset CHF unspecified - WBC 13.5, vital signs stable, no tachycardia, tachypnea or fever, lactic acid 2.3, repeat pending, blood cultures x2 pending, no sepsis - CXR with right basilar opacity concerning for pneumonia with trace right pleural effusion - COVID/flu/RSV negative - BNP 4571 - troponin negative, EKG nonischemic, QTC 511, avoid QT prolonging medications - lactic acid 2.3, likely due to albuterol - VBG with respiratory acidosis, pt stable, no respiratory distress, repeat VBG in AM - given 20mg IV lasix in ED, evaluate need for repeat dieuretics in AM - started of ceftriaxone and azithromycin in ED, continue ceftriaxone and switch to doxycycline due to prolonged QTC - given Solu-Medrol 125 mg in ED with DuoNeb, continue Solu-Medrol 60mg b.i.d. and duonebs Q4H while awake - echo - repeat BNP in AM - check lyme/tick panel due to recent tick bites and new onset CHF - monitor CBC and BMP elevated blood glucose - glucose 172 - check A1C due to lack of PCP acute normocytic anemia - no obvious bleeding sources - check iron/B12/folate - no need for blood transfusion at this time - monitor CBC hx seizures, no formal dx od seizure disorder - no seizure meds tobacco use disorder - pt denies NRT - smoking cessation discussed substance use disorder - uses intranasal heroin and crack regularly - declines addiction med consult full code VTE prophy: lovenox Patient with acute respiratory acidosis, pneumonia, COPD exacerbation and new onset CHF, requiring admission for at least 2 midnights stay for treatment and monitoring. <Tami Romero PA-C - Last Filed: 11/19/24 02:14> Patient is a 59-year-old male with a past medical history significant for homelessness, seizure disorder unspecified (last seizure about 1 year ago, diagnosed 15 years ago, patient reports occurs with changes of the seasons), and smoker, who presented to the ED due to cough and worsening shortness of breath with exertion for the past few days. Acute respiratory acidosis with pneumonia and acute COPD exacerbation with new onset CHF unspecified - WBC 13.5, vital signs stable, no tachycardia, tachypnea or fever, lactic acid 2.3, repeat pending, blood cultures x2 pending, no sepsis - CXR with right basilar opacity concerning for pneumonia with trace right pleural effusion - COVID/flu/RSV negative - BNP 4571 - troponin negative, EKG nonischemic, QTC 511, avoid QT prolonging medications - lactic acid 2.3, likely due to albuterol - VBG with respiratory acidosis, pt stable, no respiratory distress, repeat VBG in AM - given 20mg IV lasix in ED, evaluate need for repeat dieuretics in AM - started of ceftriaxone and azithromycin in ED, continue ceftriaxone and switch to doxycycline due to prolonged QTC - given Solu-Medrol 125 mg in ED with DuoNeb, continue Solu-Medrol 60mg b.i.d. and duonebs Q4H while awake - echo - repeat BNP in AM - check lyme/tick panel due to recent tick bites and new onset CHF - monitor CBC and BMP Acute lactic acidosis, likely secondary to breathing treatments. -LR 1L bolus ordered. -Recheck lactic acid 11 am. elevated blood glucose - glucose 172 - check A1C due to lack of PCP acute normocytic anemia - no obvious bleeding sources - check iron/B12/folate - no need for blood transfusion at this time - monitor CBC hx seizures, no formal dx od seizure disorder - no seizure meds tobacco use disorder - pt denies NRT - smoking cessation discussed substance use disorder - uses intranasal heroin and crack regularly - declines addiction med consult full code VTE prophy: lovenox Patient with acute respiratory acidosis, pneumonia, COPD exacerbation and new onset CHF, requiring admission for at least 2 midnights stay for treatment and monitoring. <Elo Velazquez MD - Last Filed: 11/19/24 04:15> Quality Stroke Does the patient have a stroke diagnosis?: No <Tami Romero PA-C - Last Filed: 11/19/24 02:14> VTE Prior VTE?: No <Tami Romero PA-C - Last Filed: 11/19/24 02:14> VTE Risk Level:: Medical - moderate - high <Tami Romero PA-C - Last Filed: 11/19/24 02:14> VTE Device Contraindication: Treatment Not Indicated <Tami Romero PA-C - Last Filed: 11/19/24 02:14> VTE Drug Contraindication: N/A - Med Ordered <Tami Romero PA-C - Last Filed: 11/19/24 02:14>
[2024-11-19 02:47] LABS: Reflex Lactate? Lactic Acid Added
[2024-11-19 03:51] LABS: Hematocrit 39.1 % (42.0-52.0); Hemoglobin 12.7 g/dl (14.0-18.0); Imm Gran Abs Auto 0.05 X10*3/uL (0.00-0.03); Imm Gran Pct Auto 0.5 % (0.0-0.4); Lymphocytes Absolute Auto 0.5 X10*3/uL (1.2-4.9); MANUAL DIFF FLAG SCAN; Mean Corpuscular HGB Conc 32.5 g/dl (31.0-36.0); Mean Corpuscular Hemoglobin 29.2 pg (27.0-33.0); Mean Corpuscular Volume 89.9 fL (80.0-98.0); NRBC Abs Auto 0.000 X10*3/uL (0.0-0.012); NRBC Pct Auto 0.0 /100WBC (0.0-0.2); Platelet Count 472 X10*3/uL (160-400); Red Blood Count 4.35 X10*6/uL (4.60-5.80); SCAN SMEAR FLAG 1; Venous Blood Gas Refer to POC result; White Blood Count 10.7 X10*3/uL (4.8-10.8)
[2024-11-19 03:52] LABS: VBG HCO3 25 mmol/L (22-26); VBG O2 % Saturation 87.0 %
[2024-11-19 04:04] LABS: Anion Gap 13 (12-20); Blood Urea Nitrogen 20 mg/dL (9-16); Calcium 7.9 mg/dL (8.4-10.2); Carbon Dioxide 23 mmol/L (22-29); Chloride 107 mmol/L (96-108); Creatinine Clr Calc Pharmacy 85.4; Estimated Glomerular Filt Rate > 60; Iron 20 mcg/dL (45-160); Percent Iron Saturation 9 % (15-50); Potassium 3.7 mmol/L (3.3-5.1); Sodium 139 mmol/L (135-145); Total Iron Binding Capacity 226 mcg/dL (228-428); Unsaturated Iron Binding 206 ug/dL
[2024-11-19 04:09] LABS: ~Lactic Acid-LAB USE ONLY 2.6 mmol/L (0.5-2.0)
[2024-11-19 04:13] LABS: Cancel Lactic Acid Canceled
[2024-11-19 04:35] LABS: Folate 9.1 ng/mL (> or = 4.0); Vitamin B12 527 pg/mL (200-900)
[2024-11-19] MEDS: Lactated Ringers 1,000 ML 999 ML IV (04:43)
[2024-11-19 05:10] LABS: Hemoglobin A1C 126.0176 umol/L; Total Hemoglobin (HGBA1C) 3344.3360 umol/L
--- NOTE | 2024-11-19 07:00 | CA_ITS ---
Transthoracic Echocardiogram Patient (Last, First, Middle): Harrison Craven L Gender: Male Date of : 1965 Age: 59 Procedure Date: 11/19/2024 Procedure Type: Transthoracic Echocardiogram Location: ER Height: 165.1 cm Weight: 65.77 kg BSA: 1.73 m2 Heart Rate: bpm BP: 102 / 73 mmHg Anesthesiologist And Critical Care: MYLA Referring MD: Tami Romero PA-C Feed Crusher Operator: Abe Gonzalez MD Symptoms: elevated BNP, new CHF Study Quality: Adequate ECG Rhythm: Sinus Conclusions: - 1. Mildly dilated left ventricular with mild LVH with moderate to severe LV systolic dysfunction with LVEF of 30-35% with pseudonormal filling pattern 2. Biatrial enlargement with left greater than right with severe left atrial enlargement 3. Mild mitral regurgitation 4. Moderately elevated right ventricular systolic pressure with mildly elevated right atrial pressures 5. No gross pericardial effusion Findings Left Ventricle Mildly increased left ventricular cavity size. There is mildly increased left ventricular wall thickness. The left ventricular systolic function is moderate to severely decreased. The visually estimated ejection fraction is between 30-35%. Spectral Doppler is indicative of a pseudonormal filling pattern. E/E prime ratio is between 8 and 15 consistent with indeterminate filling pressures. Right Ventricle Mildly increased right ventricular cavity size. There is normal right ventricular systolic function. Atria The left atrium is severely dilated. There is no evidence of interatrial shunt. The right atrium is moderately dilated. Aortic Valve Normal aortic valve structure and function. There is no aortic valve stenosis. There is no aortic valve regurgitation. Mitral Valve Normal mitral valve structure and function. There is mild mitral valve regurgitation. There is no mitral valve stenosis. Pulmonic Valve The pulmonic valve is likely normal. Tricuspid Valve There is mild tricuspid valve regurgitation. Mildly elevated right atrial pressure. Moderate pulmonary hypertension is present. Great Vessels All visible segments of the aorta are normal in size. The pulmonary artery was not well visualized. Venous The inferior vena cava is normal in size and collapses less than 50% with inspiration. Pericardium/Pleural There is no evidence of pericardial effusion. Prior Study Comparison No prior study available for comparison. Measurements 2D Linear Measurements IVSd: 1.22 0.6-0.9/0.6-1.0 cm LVIDd: 5.80 3.9-5.3/4.2-5.9 cm LVIDd Index: 3.35 2.4-3.2/2.2-3.1 cm/m2 LVIDs: 5.19 2.0-3.6 cm LVPWd: 1.21 0.7-1.1 cm LA Diam: 4.90 2.7-3.8/3.0-4.0 cm LAIDs Index: 2.83 1.5-2.3 cm/m2 LV Mass: 376.82 67-162/88-224 g LV Mass Index: 217.82 43-95/49-115 g/m2 LVOT Diam: 2.30 3.0+(-)1.3 cm 2D Systolic Function EF 4C: 32.60 >55% EF 2C: 33.00 >55% EF BiP: 31.80 >55% Mitral Valve MV Pk E: 1.01 MV PK A: 0.75 MV Decel Time: 114.00 E/A: 1.30 E'Lateral: 10.00 E'Medial: 7.29 E/E' Med: 13.90 E/E' Lat: 10.10 PHT: 33.00 MVA PHT: 6.67 Decel [place]: 8.83 Aortic Valve AoV Pk Gary: 1.65 AoV Mn Gary: 1.03 AoV VTI: 0.31 AoV Pk Grad: 11.00 Aov Mn Grad: 5.00 CHENG Cont.VTI: 2.76 LVOT LVOT Pk Gary: 1.22 LVOT Mn Gary: 0.75 LVOT VTI: 0.21 LVOT Pk Grad: 6.00 LVOT Mn Grad: 3.00 LVOT Diam: 2.30 LVOT Area: 4.15 Diastolic Function MV Pk E: 1.01 MV Pk A: 0.75 E/A: 1.30 E'Medial: 7.29 E/E' Med: 13.90 E' Laterial: 10.00 E/E' Lat: 10.10 Right Ventricle TAPSE (mm): 27.70 TVS' Gary: 15.00 Tricuspid Valve TR Pk Gary: 3.53 TR Pk Grad: 50.00 RA Press: 8.00 RVSP: 58.00 Great Vessels Aorta Sinus of Valsalva: 3.40 2.0-3.5 cm Pulmonary Valve PV Pk Gary: 1.12 Peak PV Grad: 5.00 Updated in Other Vendor System with Status of Final Abe Gonzalez MD electronically signed on 11/19/2024 3:31:44 PM with status of Final
[2024-11-19] MEDS: Albuterol/Iprat 2.5/0.5MG 3 ML AMPUL.NEB INHALE ×3 (08:24→15:13)
--- NOTE | 2024-11-19 08:31 | PHA.MEDREC ---
Addendum entered by Marques Ferrer RPh 11/19/24 09:17: Reviewed by [facility] Original Note: Pharmacy Consult ? Medication Reconciliation Pharmacy has completed the medication reconciliation. Patient states he is not on any home medications.
[2024-11-19] MEDS: 0.9 % Sodium Chloride Flush 3 ML SYRINGE IVFLUSH (08:37)
[2024-11-19 09:00] LABS: Procalcitonin 0.05 ng/mL
[2024-11-19] MEDS: methADONE HCl 20 MG/2 ML ORAL.CONC 30 MG PO (12:27)
[2024-11-19] MEDS: Magnesium Sulfate/H2O 2 GM/50 ML PIGGYBACK IV (12:31)
[2024-11-19 13:07] LABS: Reflex Lactate? Lactic Acid Added
--- NOTE | 2024-11-19 13:58 | HO.PM.IMPN ---
Subjective Subjective Date of Service: 11/19/24 Interval History: dyspnea + cough improved; no fever Review of Systems Review of Systems: Yes all other systems are reviewed and are negative Physical Exam Vital Signs: Vital Signs: Last Vital Signs Temp 98.1 F 11/19/24 10:05 Pulse 94 11/19/24 12:28 Resp 22 H 11/19/24 12:28 BP 153/71 H 11/19/24 10:05 Pulse Ox 95 11/19/24 10:05 O2 Del Method Room Air 11/19/24 10:05 BMI result Body Mass Index 24.2 Gen: in no acute distress HEENT: sclera anicteric, moist mucus membranes Neck: supple Lungs: diminished R Heart: regular rate and rhythm, no murmurs Abd: soft, non-tender, non-distended Ext: 1+ bilateral leg edema Skin: warm/well-perfused Neuro: alert and oriented x3, no focal findings Psych: appropriate affect Objective Data Active Medications Acetaminophen (Acetaminophen 325 Mg Tablet) 975 mg PO Q6H PRN PRN Reason: Pain, Mild 1-3,fever,headache Albuterol Sulfate (Albuterol Sulfate (0.083%) 2.5 Mg/3 Ml Vial.Neb) 2.5 mg INHALE Q2H PRN PRN Reason: Shortness of Breath/Wheezing Albuterol/Ipratropium (Albuterol/Iprat 2.5/0.5mg 3 Ml Ampul.Neb) 3 ml INHALE RQ4H WHILE AWAKE [facility] Last Admin: 11/19/24 12:26 Dose: 3 ml Documented By: CHRISTEN Calcium Carbonate (Calcium Carbonate 750 Mg Tab.Chew) 750 mg PO Q4H PRN PRN Reason: Heartburn Ceftriaxone Sodium (Ceftriaxone Sodium 1 Gm Vial) 1 gm IVPUSH Q24H [facility] Enoxaparin Sodium (Enoxaparin Sodium 40 Mg/0.4 Ml Syringe) 40 mg SUBCUT Q24H [facility] Last Admin: 11/19/24 02:20 Dose: Not Given Documented By: LAUREN Non-Admin Reason: Patient Refused Doxycycline Hyclate 100 mg/ (Sodium Chloride) 250 mls @ 166.67 mls/hr IV BID [facility] Last Admin: 11/19/24 08:41 Dose: 166.67 mls/hr Documented By: COURTNEY Magnesium Sulfate (Magnesium Sulfate/H2o) 2 gm in 50 mls @ 25 mls/hr IV ONCE ONE Stop: 11/19/24 14:03 Last Admin: 11/19/24 12:31 Dose: 25 mls/hr Documented By: RITA Magnesium Hydroxide (Milk Of Magnesia 30 Ml Oral.Susp) 30 ml PO DAILY PRN PRN Reason: Constipation Melatonin (Melatonin 3 Mg Tablet) 6 mg PO BEDTIME PRN PRN Reason: Insomnia Methylprednisolone Sodium Succinate (Methylprednisolone Sod Succ 125 Mg/2 Ml Vial) 60 mg IVPUSH BID [facility] Last Admin: 11/19/24 08:41 Dose: 60 mg Documented By: COURTNEY Oxycodone HCl (Oxycodone Hcl Immed Release 5 Mg Tablet) 5 mg PO Q6H PRN PRN Reason: Pain, Severe (Pain Scale 7-10) Sodium Chloride (0.9 % Sodium Chloride Flush 3 Ml Syringe) 3 ml IVFLUSH QSHIFT [facility] Last Admin: 11/19/24 08:37 Dose: 3 ml Documented By: COURTNEY Tramadol HCl (Tramadol Hcl 50 Mg Tablet) 50 mg PO Q6H PRN PRN Reason: Pain, Moderate(Pain Scale 4-6) Labs 11/19/24 03:40 11/19/24 03:40 Labs: Laboratory Results - last 24 hr 11/18/24 11/18/24 11/19/24 23:54 23:56 00:42 MCV 91.0 MCH 29.3 MCHC 32.2 RDW 16.3 H Plt Count 479 H MPV 9.5 Immature Gran % (Auto) 0.3 Neut % (Auto) 81.8 H Lymph % (Auto) 10.3 L [place] % (Auto) 6.3 Eos % (Auto) 0.8 Baso % (Auto) 0.5 Lymph # (Auto) 1.4 [place] # (Auto) 0.9 Eos # (Auto) 0.1 Baso # (Auto) 0.1 Abs Immat Gran (auto) 0.04 H Absolute Neuts (auto) 11.1 H Absolute Nucleated RBC 0.000 Nucleated RBC % (auto) 0.0 Smear Tech's Comments VBG pH VBG pCO2 VBG pO2 VBG HCO3 VBG O2 Saturation VBG Base Excess Anion Gap 15 Estim Creat Clear Calc 84.3 Estimated GFR > 60 Random Glucose 172 H Estimat Average Glucose Cancelled Hemoglobin A1c % Cancelled Lactic Acid 2.3 H* Lactic Acid F/U @ 2Hr Calcium 7.7 L Magnesium 1.7 Iron TIBC % Saturation Unsat Iron Binding B-Natriuretic Peptide 4571 H Vitamin B12 Folate Procalcitonin Influenza Type A (PCR) NEGATIVE Influenza Type B (PCR) NEGATIVE RSV RNA Qual (PCR) NEGATIVE SARS-CoV-2 RNA (RT-PCR) NEGATIVE 11/19/24 11/19/24 11/19/24 01:06 03:40 03:47 MCV 89.9 MCH 29.2 MCHC 32.5 RDW 15.9 Plt Count 472 H MPV 9.6 Immature Gran % (Auto) 0.5 H Neut % (Auto) 92.0 H Lymph % (Auto) 5.0 L [place] % (Auto) 2.0 Eos % (Auto) 0.2 Baso % (Auto) 0.3 Lymph # (Auto) 0.5 L [place] # (Auto) 0.2 Eos # (Auto) 0.0 Baso # (Auto) 0.0 Abs Immat Gran (auto) 0.05 H Absolute Neuts (auto) 9.8 H Absolute Nucleated RBC 0.000 Nucleated RBC % (auto) 0.0 Smear Tech's Comments VERIFIED VBG pH 7.29 L 7.38 VBG pCO2 51 43 VBG pO2 54 56 VBG HCO3 25 25 VBG O2 Saturation 71.0 87.0 VBG Base Excess -2.0 0.6 Anion Gap 13 Estim Creat Clear Calc 85.4 Estimated GFR > 60 Random Glucose 148 H Estimat Average Glucose 114 Hemoglobin A1c % 5.6 Lactic Acid Lactic Acid F/U @ 2Hr 2.6 H* Calcium 7.9 L Magnesium Iron 20 L TIBC 226 L % Saturation 9 L Unsat Iron Binding 206 B-Natriuretic Peptide Vitamin B12 527 Folate 9.1 Procalcitonin 0.05 Influenza Type A (PCR) Influenza Type B (PCR) RSV RNA Qual (PCR) SARS-CoV-2 RNA (RT-PCR) 11/19/24 11:05 MCV MCH MCHC RDW Plt Count MPV Immature Gran % (Auto) Neut % (Auto) Lymph % (Auto) [place] % (Auto) Eos % (Auto) Baso % (Auto) Lymph # (Auto) [place] # (Auto) Eos # (Auto) Baso # (Auto) Abs Immat Gran (auto) Absolute Neuts (auto) Absolute Nucleated RBC Nucleated RBC % (auto) Smear Tech's Comments VBG pH VBG pCO2 VBG pO2 VBG HCO3 VBG O2 Saturation VBG Base Excess Anion Gap Estim Creat Clear Calc Estimated GFR Random Glucose Estimat Average Glucose Hemoglobin A1c % Lactic Acid 4.7 H* Lactic Acid F/U @ 2Hr Calcium Magnesium Iron TIBC % Saturation Unsat Iron Binding B-Natriuretic Peptide Vitamin B12 Folate Procalcitonin Influenza Type A (PCR) Influenza Type B (PCR) RSV RNA Qual (PCR) SARS-CoV-2 RNA (RT-PCR) Assessment and Plan (1) New onset of congestive heart failure: Status: Acute Plan 9-year-old male with a past medical history significant for homelessness, seizure disorder unspecified (last seizure about 1 year ago, diagnosed 15 years ago, patient reports occurs with changes of the seasons), and smoker, who presented to the ED due to cough and worsening shortness of breath with exertion for the past few days. d1 for 59yo homeless M with hx tobacco abuse + heroin/crack abuse presenting with dyspnea, cough, and leg edema acute respiratory acidosis due to acute COPD exacerbation, pneumonia, and new-onset CHF - 11/19- ceftriaxone + doxycycline, follow BCx, trend PCT, check urinary antigens for Legionella and pneumococcus + MRSA swab + resp pathogen panel - continue methylprednisolone, nebs - check TTE, continue diuresis with furosemide, monitor I+O/BNP,lytes - acidosis resolved multiple tick bites - tickborne serologies + molecular panel pending acute lactic acidosis - likely bronchodilator effect normocytic anemia - H+H stable, likely iron deficiency + chronic disease hx seizures - not on any antiepileptic polysubstance abuse - HBV/HCV/HIV screen - Addiction Medicine consulted, started methadone, recheck QTc tomorrow [will give 2g Mg sulfate for Mg 1.7] VTE ppx - enoxaparin dispo - TBD In my clinical judgment, the patient requires continued inpatient hospitalization for the following reasons: IV ABX + diuresis Total time managing care of this patient today: 35 minutes. Quality Stroke Does the patient have a stroke diagnosis?: No VTE Prior VTE?: No VTE Risk Level:: Medical - moderate - high VTE Device Contraindication: Treatment Not Indicated VTE Drug Contraindication: N/A - Med Ordered
--- NOTE | 2024-11-19 14:28 | PC.NURSE ---
tylenol for mild headache at patient's request.
--- NOTE | 2024-11-19 15:15 | HO.ADDICTCON ---
History of Present Illness Date of Service: 11/19/2024 Chief Complaint: Acute exacerbation of COPD Reason for Consult: OUD Sources of Information: patient interviewed and chart reviewed HPI Narrative: Patient is a 59 year old male with history of seizure disorder and OUD. Presented to [facility] ED with cough and complaints of feeling weak. Subsequently admitted with pneumonia, COPD exacerbation and new onset CHF. Consult requested as patient reported ongoing substance use. Patient seen in room 10 of main ED, awaitng transfer to [facility] [place] floor. He is awake, alert, sitting on the edge of the bed. He is reporting nausea, headache, restlessness --and feels they are likely related to opiate withdrawal He states that he uses a bundle of fentanyl daily, [place]. Not engaged in treatment for OUD History of MOUD--methadone up to 180mg 2 years ago, however patient d/c as he continued to use and I couldn't see the point . Today he is agreeable to starting a taper to address withdrawal sx while medically admitted chart review shows patient was in ED 09/2024, and earlier this month with opiate overdose. Labs reviewed Mg 1.7, lactic acid 4.7, Calcium 7.9 Medical Evaluation Reviewed: Yes Review of Systems Constitutional: Reports as per HPI and Reports no additional constitutional complaints Diagnostics Vital Signs (24Hr): Vital Signs - 24 hr 11/18/24 23:45 11/19/24 00:06 11/19/24 01:54 Temperature 97.9 F 97.9 F Pulse Rate 65 65 70 Respiratory Rate 16 16 12 Blood Pressure 128/101 H 128/101 H 107/72 Pulse Oximetry 99 99 95 Oxygen Delivery Method Room Air Room Air Room Air 11/19/24 01:57 11/19/24 03:41 11/19/24 08:26 Temperature 97.9 F Pulse Rate 66 83 Respiratory Rate 17 14 Blood Pressure 107/72 102/73 Pulse Oximetry 97 Oxygen Delivery Method Room Air 11/19/24 10:05 11/19/24 12:28 11/19/24 14:22 Temperature 98.1 F 98.2 F Pulse Rate 94 94 92 Respiratory Rate 14 22 H 13 Blood Pressure 153/71 H 162/89 H Pulse Oximetry 95 96 Oxygen Delivery Method Room Air Room Air 11/19/24 14:25 11/19/24 15:13 Temperature Pulse Rate 92 Respiratory Rate 13 Blood Pressure 168/89 H Pulse Oximetry Oxygen Delivery Method BMI result Body Mass Index 24.2 Labs 11/19/24 03:40 11/19/24 03:40 Labs: Laboratory Results - last 48 hr 11/18/24 11/18/24 11/19/24 23:54 23:56 00:42 WBC 13.5 H RBC 4.20 L Hgb 12.3 L Hct 38.2 L MCV 91.0 MCH 29.3 MCHC 32.2 RDW 16.3 H Plt Count 479 H MPV 9.5 Immature Gran % (Auto) 0.3 Neut % (Auto) 81.8 H Lymph % (Auto) 10.3 L [place] % (Auto) 6.3 Eos % (Auto) 0.8 Baso % (Auto) 0.5 Lymph # (Auto) 1.4 [place] # (Auto) 0.9 Eos # (Auto) 0.1 Baso # (Auto) 0.1 Abs Immat Gran (auto) 0.04 H Absolute Neuts (auto) 11.1 H Absolute Nucleated RBC 0.000 Nucleated RBC % (auto) 0.0 Smear Tech's Comments VBG pH VBG pCO2 VBG pO2 VBG HCO3 VBG O2 Saturation VBG Base Excess Sodium 139 Potassium 4.1 Chloride 106 Carbon Dioxide 22 Anion Gap 15 BUN 22 H Creatinine 0.82 Estim Creat Clear Calc 84.3 Estimated GFR > 60 Random Glucose 172 H Estimat Average Glucose Cancelled Hemoglobin A1c % Cancelled Lactic Acid 2.3 H* Lactic Acid F/U @ 2Hr Calcium 7.7 L Magnesium 1.7 Iron TIBC % Saturation Unsat Iron Binding Troponin I High Sens 30.9 B-Natriuretic Peptide 4571 H Vitamin B12 Folate Procalcitonin Influenza Type A (PCR) NEGATIVE Influenza Type B (PCR) NEGATIVE RSV RNA Qual (PCR) NEGATIVE SARS-CoV-2 RNA (RT-PCR) NEGATIVE 11/19/24 11/19/24 11/19/24 01:06 03:40 03:47 WBC 10.7 RBC 4.35 L Hgb 12.7 L Hct 39.1 L MCV 89.9 MCH 29.2 MCHC 32.5 RDW 15.9 Plt Count 472 H MPV 9.6 Immature Gran % (Auto) 0.5 H Neut % (Auto) 92.0 H Lymph % (Auto) 5.0 L [place] % (Auto) 2.0 Eos % (Auto) 0.2 Baso % (Auto) 0.3 Lymph # (Auto) 0.5 L [place] # (Auto) 0.2 Eos # (Auto) 0.0 Baso # (Auto) 0.0 Abs Immat Gran (auto) 0.05 H Absolute Neuts (auto) 9.8 H Absolute Nucleated RBC 0.000 Nucleated RBC % (auto) 0.0 Smear Tech's Comments VERIFIED VBG pH 7.29 L 7.38 VBG pCO2 51 43 VBG pO2 54 56 VBG HCO3 25 25 VBG O2 Saturation 71.0 87.0 VBG Base Excess -2.0 0.6 Sodium 139 Potassium 3.7 Chloride 107 Carbon Dioxide 23 Anion Gap 13 BUN 20 H Creatinine 0.81 Estim Creat Clear Calc 85.4 Estimated GFR > 60 Random Glucose 148 H Estimat Average Glucose 114 Hemoglobin A1c % 5.6 Lactic Acid Lactic Acid F/U @ 2Hr 2.6 H* Calcium 7.9 L Magnesium Iron 20 L TIBC 226 L % Saturation 9 L Unsat Iron Binding 206 Troponin I High Sens B-Natriuretic Peptide Vitamin B12 527 Folate 9.1 Procalcitonin 0.05 Influenza Type A (PCR) Influenza Type B (PCR) RSV RNA Qual (PCR) SARS-CoV-2 RNA (RT-PCR) 11/19/24 11:05 WBC RBC Hgb Hct MCV MCH MCHC RDW Plt Count MPV Immature Gran % (Auto) Neut % (Auto) Lymph % (Auto) [place] % (Auto) Eos % (Auto) Baso % (Auto) Lymph # (Auto) [place] # (Auto) Eos # (Auto) Baso # (Auto) Abs Immat Gran (auto) Absolute Neuts (auto) Absolute Nucleated RBC Nucleated RBC % (auto) Smear Tech's Comments VBG pH VBG pCO2 VBG pO2 VBG HCO3 VBG O2 Saturation VBG Base Excess Sodium Potassium Chloride Carbon Dioxide Anion Gap BUN Creatinine Estim Creat Clear Calc Estimated GFR Random Glucose Estimat Average Glucose Hemoglobin A1c % Lactic Acid 4.7 H* Lactic Acid F/U @ 2Hr Calcium Magnesium Iron TIBC % Saturation Unsat Iron Binding Troponin I High Sens B-Natriuretic Peptide Vitamin B12 Folate Procalcitonin Influenza Type A (PCR) Influenza Type B (PCR) RSV RNA Qual (PCR) SARS-CoV-2 RNA (RT-PCR) Mental Status Exam Mental Status Exam Patient Appearance: Appropriate Level of Consciousness: Awake, Appropriate and Alert Patient Behavior: Appropriate and Guarded Affect Description: Blunted Speech Pattern: Clear Thought Process: Intact Thought Content: positive for Intact Judgement: Good Medications Medications Current Medications Acetaminophen (Acetaminophen 325 Mg Tablet) 975 mg PO Q6H PRN PRN Reason: Pain, Mild 1-3,fever,headache Last Admin: 11/19/24 14:27 Dose: 975 mg Albuterol Sulfate (Albuterol Sulfate (0.083%) 2.5 Mg/3 Ml Vial.Neb) 2.5 mg INHALE Q2H PRN PRN Reason: Shortness of Breath/Wheezing Albuterol/Ipratropium (Albuterol/Iprat 2.5/0.5mg 3 Ml Ampul.Neb) 3 ml INHALE RQ4H WHILE AWAKE [facility] Last Admin: 11/19/24 15:13 Dose: 3 ml Calcium Carbonate (Calcium Carbonate 750 Mg Tab.Chew) 750 mg PO Q4H PRN PRN Reason: Heartburn Ceftriaxone Sodium (Ceftriaxone Sodium 1 Gm Vial) 1 gm IVPUSH Q24H [facility] Enoxaparin Sodium (Enoxaparin Sodium 40 Mg/0.4 Ml Syringe) 40 mg SUBCUT Q24H [facility] Last Admin: 11/19/24 02:20 Dose: Not Given Furosemide (Furosemide 20 Mg/2 Ml Vial) 20 mg IVPUSH DAILY [facility]; Protocol Last Admin: 11/19/24 14:25 Dose: 20 mg Doxycycline Hyclate 100 mg/ (Sodium Chloride) 250 mls @ 166.67 mls/hr IV BID [facility] Last Admin: 11/19/24 08:41 Dose: 166.67 mls/hr Magnesium Hydroxide (Milk Of Magnesia 30 Ml Oral.Susp) 30 ml PO DAILY PRN PRN Reason: Constipation Melatonin (Melatonin 3 Mg Tablet) 6 mg PO BEDTIME PRN PRN Reason: Insomnia Methylprednisolone Sodium Succinate (Methylprednisolone Sod Succ 125 Mg/2 Ml Vial) 60 mg IVPUSH BID [facility] Last Admin: 11/19/24 08:41 Dose: 60 mg Oxycodone HCl (Oxycodone Hcl Immed Release 5 Mg Tablet) 5 mg PO Q6H PRN PRN Reason: Pain, Severe (Pain Scale 7-10) Sodium Chloride (0.9 % Sodium Chloride Flush 3 Ml Syringe) 3 ml IVFLUSH QSHIFT [facility] Last Admin: 11/19/24 08:37 Dose: 3 ml Tramadol HCl (Tramadol Hcl 50 Mg Tablet) 50 mg PO Q6H PRN PRN Reason: Pain, Moderate(Pain Scale 4-6) Allergies Allergies Allergy/AdvReac Type Severity Reaction Status Date / Time bees Allergy Unknown Anaphylaxis Uncoded 11/18/24 23:47 Assessment & Plan Assessment & Plan (1) Opioid use disorder: Status: Acute Code(s): F11.90 - Opioid use, unspecified, uncomplicated Assessment and Plan: methadone 30mg X1 with 10mg PRN dose ---patient can have up to 50mg day one if needed--low dose was based on his request. Please offer/administer medication as apporpriate AM 30mg and will discuss with patient plans to continue taper or increase dose if he changed his mind Hepatitis and HIV panels already ordered Total time managing care of this patient today __35__ minutes. PMFSH Past Medical History Medical History Homelessness Tobacco use disorder Seizures Social History Social History Use of substances other than those prescribed or required for medical reasons: Yes Substance Use Type: Crack/Cocaine and Heroin Substance Use Frequency: Chronic Longstanding Advance Directives: No Advance Directives Information Provided: No
--- NOTE | 2024-11-19 16:01 | PM.DS ---
DS: Providers Provider Date of Service: 11/19/24 Date of admission: 11/19/24 01:37 Date of discharge: 11/19/24 Primary care physician: Gian Vanegas MD Consults: 11/19/24 08:14 Addiction Medicine Provider Routine Consulting Provider: Addiction Covering Reason for consultation: crack, heroin DS: Diagnosis Discharge Diagnosis (1) Opioid use disorder: Status: Acute (2) Crack cocaine use: Status: Acute (3) Acute respiratory acidosis: Status: Acute (4) New onset of congestive heart failure: Status: Acute (5) COPD with acute exacerbation: Status: Acute (6) Pneumonia: Status: Acute DS: Summary Hospital Course Hospital Course: From the history and physical by the admitting hospitalist, LUCIANA Rodríguez 11/19/24: Patient is a 59-year-old male with a past medical history significant for homelessness, seizure disorder unspecified (last seizure about 1 year ago, diagnosed 15 years ago, patient reports occurs with changes of the seasons), and smoker, who presented to the ED due to cough and worsening shortness of breath with exertion for the past few days. The patient reports that he has been smoking for the past 50 years but has no underlying diagnosed COPD or asthma. He has been wheezing but has had improvement with Solu-Medrol and DuoNeb. Patient reports multiple recent tick bites but no rash. He reports 1 of the tick bites was engorged and was likely on for a few days. He has had a productive cough but denies any fever, chills, nausea or vomiting. He denies any abdominal pain or urinary symptoms. He also notes pitting edema for the past few days which is new for him. He has no diagnosis of congestive heart failure that he knows of. The patient is homeless and reports that he does not have routine medical care. He smokes about 1.5 packs of cigarettes a day and uses heroin and crack cocaine regularly. and from my progress note, 11/19/24: [5]9-year-old male with a past medical history significant for homelessness, seizure disorder unspecified (last seizure about 1 year ago, diagnosed 15 years ago, patient reports occurs with changes of the seasons), and smoker, who presented to the ED due to cough and worsening shortness of breath with exertion for the past few days. d1 for 59yo homeless M with hx tobacco abuse + heroin/crack abuse presenting with dyspnea, cough, and leg edema acute respiratory acidosis due to acute COPD exacerbation, pneumonia, and new-onset CHF - 11/19- ceftriaxone + doxycycline, follow BCx, trend PCT, check urinary antigens for Legionella and pneumococcus + MRSA swab + resp pathogen panel - continue methylprednisolone, nebs - check TTE, continue diuresis with furosemide, monitor I+O/BNP,lytes - acidosis resolved multiple tick bites - tickborne serologies + molecular panel pending acute lactic acidosis - likely bronchodilator effect normocytic anemia - H+H stable, likely iron deficiency + chronic disease hx seizures - not on any antiepileptic polysubstance abuse - HBV/HCV/HIV screen - Addiction Medicine consulted, started methadone, recheck QTc tomorrow [will give 2g Mg sulfate for Mg 1.7] Unfortunately, he suddenly decided to sign out AGAINST MEDICAL ADVICE despite counseling on the risks of doing so including disability and . Time Attestation Discharge Coordination Time (in mins): 35 Quality: Safe Use of Opioids Does Pt have an Active Cancer Diagnosis on the Problem List?: No Quality: Stroke Does the patient have a stroke diagnosis?: No Physical Exam Vital Signs: Vital Signs: Last Vital Signs Temp 98.2 F 11/19/24 14:22 Pulse 92 11/19/24 15:13 Resp 13 11/19/24 15:13 BP 168/89 H 11/19/24 14:25 Pulse Ox 96 11/19/24 14:22 O2 Del Method Room Air 11/19/24 14:22 BMI result Body Mass Index 24.2 DS: Data Data Completed and Pending Labs on day of discharge: Laboratory Results - last 24 hr 11/18/24 11/18/24 11/19/24 23:54 23:56 00:42 WBC 13.5 H RBC 4.20 L Hgb 12.3 L Hct 38.2 L MCV 91.0 MCH 29.3 MCHC 32.2 RDW 16.3 H Plt Count 479 H MPV 9.5 Immature Gran % (Auto) 0.3 Neut % (Auto) 81.8 H Lymph % (Auto) 10.3 L [place] % (Auto) 6.3 Eos % (Auto) 0.8 Baso % (Auto) 0.5 Lymph # (Auto) 1.4 [place] # (Auto) 0.9 Eos # (Auto) 0.1 Baso # (Auto) 0.1 Abs Immat Gran (auto) 0.04 H Absolute Neuts (auto) 11.1 H Absolute Nucleated RBC 0.000 Nucleated RBC % (auto) 0.0 Smear Tech's Comments VBG pH VBG pCO2 VBG pO2 VBG HCO3 VBG O2 Saturation VBG Base Excess Sodium 139 Potassium 4.1 Chloride 106 Carbon Dioxide 22 Anion Gap 15 BUN 22 H Creatinine 0.82 Estim Creat Clear Calc 84.3 Estimated GFR > 60 Random Glucose 172 H Estimat Average Glucose Cancelled Hemoglobin A1c % Cancelled Lactic Acid 2.3 H* Lactic Acid F/U @ 2Hr Calcium 7.7 L Magnesium 1.7 Iron TIBC % Saturation Unsat Iron Binding Troponin I High Sens 30.9 B-Natriuretic Peptide 4571 H Vitamin B12 Folate Procalcitonin Influenza Type A (PCR) NEGATIVE Influenza Type B (PCR) NEGATIVE RSV RNA Qual (PCR) NEGATIVE SARS-CoV-2 RNA (RT-PCR) NEGATIVE 11/19/24 11/19/24 11/19/24 01:06 03:40 03:47 WBC 10.7 RBC 4.35 L Hgb 12.7 L Hct 39.1 L MCV 89.9 MCH 29.2 MCHC 32.5 RDW 15.9 Plt Count 472 H MPV 9.6 Immature Gran % (Auto) 0.5 H Neut % (Auto) 92.0 H Lymph % (Auto) 5.0 L [place] % (Auto) 2.0 Eos % (Auto) 0.2 Baso % (Auto) 0.3 Lymph # (Auto) 0.5 L [place] # (Auto) 0.2 Eos # (Auto) 0.0 Baso # (Auto) 0.0 Abs Immat Gran (auto) 0.05 H Absolute Neuts (auto) 9.8 H Absolute Nucleated RBC 0.000 Nucleated RBC % (auto) 0.0 Smear Tech's Comments VERIFIED VBG pH 7.29 L 7.38 VBG pCO2 51 43 VBG pO2 54 56 VBG HCO3 25 25 VBG O2 Saturation 71.0 87.0 VBG Base Excess -2.0 0.6 Sodium 139 Potassium 3.7 Chloride 107 Carbon Dioxide 23 Anion Gap 13 BUN 20 H Creatinine 0.81 Estim Creat Clear Calc 85.4 Estimated GFR > 60 Random Glucose 148 H Estimat Average Glucose 114 Hemoglobin A1c % 5.6 Lactic Acid Lactic Acid F/U @ 2Hr 2.6 H* Calcium 7.9 L Magnesium Iron 20 L TIBC 226 L % Saturation 9 L Unsat Iron Binding 206 Troponin I High Sens B-Natriuretic Peptide Vitamin B12 527 Folate 9.1 Procalcitonin 0.05 Influenza Type A (PCR) Influenza Type B (PCR) RSV RNA Qual (PCR) SARS-CoV-2 RNA (RT-PCR) 11/19/24 11:05 WBC RBC Hgb Hct MCV MCH MCHC RDW Plt Count MPV Immature Gran % (Auto) Neut % (Auto) Lymph % (Auto) [place] % (Auto) Eos % (Auto) Baso % (Auto) Lymph # (Auto) [place] # (Auto) Eos # (Auto) Baso # (Auto) Abs Immat Gran (auto) Absolute Neuts (auto) Absolute Nucleated RBC Nucleated RBC % (auto) Smear Tech's Comments VBG pH VBG pCO2 VBG pO2 VBG HCO3 VBG O2 Saturation VBG Base Excess Sodium Potassium Chloride Carbon Dioxide Anion Gap BUN Creatinine Estim Creat Clear Calc Estimated GFR Random Glucose Estimat Average Glucose Hemoglobin A1c % Lactic Acid 4.7 H* Lactic Acid F/U @ 2Hr Calcium Magnesium Iron TIBC % Saturation Unsat Iron Binding Troponin I High Sens B-Natriuretic Peptide Vitamin B12 Folate Procalcitonin Influenza Type A (PCR) Influenza Type B (PCR) RSV RNA Qual (PCR) SARS-CoV-2 RNA (RT-PCR) Discharge Plan Discharge Patient Disposition: Left Against Medical Advice Discharge Diagnosis: CHF COPD pneumonia left against medical advice Referrals: Gian Vanegas MD [Primary Care Provider, Pediatrics] - 1 Week Discharge Medications: No Action No Known Home Meds Discharge Orders: Discharge Order (Routine); Ordered 11/19/24 Ordered By: Aleksander Priest Stand Alone Forms: Against Medical Advice Print Language: Dominican Care Plan Goals: appropriate medical care Health Concerns: CHF COPD pneumonia left against medical advice Plan of Treatment: return to the hospital [facility] to resume indicated medical care Assessment: See Discharge Summary.
[2024-11-20 16:23] LABS: A. Phagocytphilium DNA,RT-PCR NOT DETECTED (NOT DETECTED); Babesia Microti DNA, RT-PCR NOT DETECTED (NOT DETECTED); Borrelia Miyamotoi,DNA RT-PCR NOT DETECTED (NOT DETECTED); E.Chaffeensis DNA RT-PCR NOT DETECTED (NOT DETECTED); Lyme(Borrelia ssp)DNA RT-PCR NOT DETECTED (NOT DETECTED)
[2024-11-20 23:33] LABS: Lyme Blot 4.36 index
[2024-11-23 11:23] LABS: Lyme Abs Screen POSITIVE
[2024-11-29 20:48] LABS: 39KD (IgG) Band REACTIVE; 41KD (IgG) Band REACTIVE; Lyme IgG Blot Interp POSITIVE (NEGATIVE); Lyme IgM Blot Interp NEGATIVE (NEGATIVE)
== END 2024-11-19 19:20 | disposition left against medical advice (07) | DRG 194 ==
LOC: HO.ED 11-19 01:38 → HO.EDOVER 11-19 01:43
PROVIDERS: Physician Assistant; Admitting Provider Internal Medicine; Emergency Provider Emergency Medicine; PCP Internal Medicine; Visit Provider Family Medicine
DX: I50.9 Heart failure, unspecified (principal); J96.02 Acute respiratory failure with hypercapnia; E87.21 Acute metabolic acidosis; J18.9 Pneumonia, unspecified organism; J44.0 Chronic obstructive pulmonary disease with (acute) lower respiratory infection; G40.909 Epilepsy, unspecified, not intractable, without status epilepticus; Z59.02 Unsheltered homelessness; W57.XXXA Bitten or stung by nonvenomous insect and other nonvenomous arthropods, initial encounter; J44.1 Chronic obstructive pulmonary disease with (acute) exacerbation; D64.9 Anemia, unspecified; F19.10 Other psychoactive substance abuse, uncomplicated; F14.10 Cocaine abuse, uncomplicated; F11.10 Opioid abuse, uncomplicated
CPT/HCPCS: 36415; 71045; 80048; 82607; 82746; 82803; 83036; 83540; 83605; 83735; 83880; 84145; 84484; 85025; 86617; 86618; 87040; 87468; 87469; 87478; 87484; 87637; 87798; 93005; 93306; 99285; J0456; J0696; J1271; J1938; J2919; J3475; J7120; Q9957

== ENCOUNTER → 2024-11-18 23:49 | Outpatient (BNV) | payer MEDICAID, SELFPAY | PROVIDERS: Admitting Provider Internal Medicine; Emergency Provider Emergency Medicine; PCP Internal Medicine; Visit Provider Internal Medicine Cardiovascular Disease | DX: R94.31 Abnormal electrocardiogram [ECG] [EKG] (principal); R06.02 Shortness of breath | CPT/HCPCS: 93010 ==

== ENCOUNTER 2024-11-19 01:37 | Outpatient (BNV) | payer MEDICAID, SELFPAY | END 2024-11-19 07:00 | PROVIDERS: Admitting Provider Internal Medicine; Emergency Provider Emergency Medicine; PCP Internal Medicine; Visit Provider Internal Medicine Cardiovascular Disease | DX: I50.21 Acute systolic (congestive) heart failure (principal); I27.20 Pulmonary hypertension, unspecified; I51.7 Cardiomegaly; I34.0 Nonrheumatic mitral (valve) insufficiency | CPT/HCPCS: 93306 ==

== ENCOUNTER → 2024-11-19 01:37 | Outpatient (BNV) | payer MEDICAID, SELFPAY | PROVIDERS: Admitting Provider Internal Medicine; Emergency Provider Emergency Medicine; PCP Internal Medicine; Visit Provider Physician Assistant | DX: J96.02 Acute respiratory failure with hypercapnia (principal); J44.1 Chronic obstructive pulmonary disease with (acute) exacerbation; I50.9 Heart failure, unspecified; J18.9 Pneumonia, unspecified organism; D64.9 Anemia, unspecified; F17.200 Nicotine dependence, unspecified, uncomplicated; F19.90 Other psychoactive substance use, unspecified, uncomplicated; F11.90 Opioid use, unspecified, uncomplicated; F14.90 Cocaine use, unspecified, uncomplicated | CPT/HCPCS: 99236; 99499 ==

== ENCOUNTER → 2024-11-19 01:37 | Outpatient (BNV) | payer OTHER, SELFPAY | PROVIDERS: Admitting Provider Internal Medicine; Emergency Provider Emergency Medicine; PCP Internal Medicine; Visit Provider Nurse Practitioner Psychiatric/Mental Health | DX: F11.90 Opioid use, unspecified, uncomplicated (principal) | CPT/HCPCS: 99284 ==

== ENCOUNTER → 2024-11-19 | Outpatient (BNV) | payer MEDICAID, SELFPAY | PROVIDERS: Emergency Provider Emergency Medicine; PCP Internal Medicine; Visit Provider Radiology Diagnostic Radiology | DX: R06.02 Shortness of breath (principal) | CPT/HCPCS: 71045 ==

== ENCOUNTER 2024-11-30 19:32 | Emergency (ER) | payer OTHER, SELFPAY ==
[2024-11-30 19:40] VITALS: BP 160/100; PULSE 113; O2SAT 94
[2024-11-30 19:51] VITALS: BP 136/89; PULSE 89; RESP 18; TEMP 36.6; O2SAT 92; BMI 21.6
--- NOTE | 2024-11-30 19:52 | ED_ITS ---
HPI - Overdose General Chief Complaint: Overdose Stated Complaint: Overdose Time Seen by Provider: 11/30/24 19:47 Source: patient and EMS Mode of arrival: EMS Limitations: no limitations History of Present Illness ED Provider: Dr. Lety Duke HPI Narrative: 59-year-old male with a history of opioid use disorder presenting after an apparent overdose that occurred immediately prior to arrival. Patient was found down, Narcan given by EMS intranasally. Patient responded very well, was awake, alert, endorsing heroin use. States that he ?does not really know what was in there but thought it might be heroin?. Denies other illness. Denies intent for self-harm. Denies other illicit substance use. Requesting discharge. Had been feeling well prior to this incident. Related Data Home Medications ?Medication ?Instructions ?Recorded ?Confirmed No Known Home Meds 11/19/24 11/19/24 Allergies Allergy/AdvReac Type Severity Reaction Status Date / Time bees Allergy Unknown Anaphylaxis Uncoded 11/30/24 19:51 Review of Systems Review of Systems: As per HPI, full review of systems performed and negative but for the above mentioned pertinent positives and negatives. [facility] Past Medical History Medical History Homelessness Tobacco use disorder Seizures Social History Social History Substance Use Type: Crack/Cocaine and Heroin Advance Directives: No Advance Directives Information Provided: No Physical Exam Exam: Exam: GENERAL: Unkempt, no acute distress. SKIN: Normal skin color for ethnicity, warm, dry, no rashes noted. HEENT: Normocephalic, atraumatic, no stridor, posterior oropharynx nonerythematous, dentition intact, EOMI. NECK: Soft, supple, full ROM, midline structures nontender, no step-offs, no deformities, no lymphadenopathy. CHEST: Heart regular rate and rhythm, no murmurs, symmetric chest rise and fall. PULMONARY: Clear to auscultation bilaterally, no labored breathing, no wheezes/rhales/ rhonchi. ABDOMINAL: Soft, nondistended, nontender, positive bowel sounds in all quadrants. : Deferred. MUSCULOSKELETAL: Normal tone, full range of motion, no deformities, no peripheral edema. NEURO: Alert and oriented x3, CN II through XII intact, equal strength and sensation bilateral upper and lower extremities, no focal neurologic deficits. PSYCHIATRIC: Flat affect, poor eye contact, withdrawn Vital Signs: Vital Signs: Last Vital Signs Temp 97.9 F 11/30/24 20:10 Pulse 89 11/30/24 20:10 Resp 18 11/30/24 20:10 BP 136/89 11/30/24 20:10 Pulse Ox 92 11/30/24 20:10 BMI result Body Mass Index 21.6 Medications Administered Discontinued Medications Generic Name Dose Route Start Last Admin Trade Name Joaquin PRN Reason Stop Dose Admin Naloxone HCl 8 mg 11/30/24 19:49 11/30/24 19:57 Naloxone Hcl Nasal Take Home 4 Mg Thornton NOSTRILALT 11/30/24 19:50 8 mg ONCE ONE Administration Medical Decision Making Medical Decision Making MDM Narrative: Patient presents with a chief complaint of possible overdose. Differential diagnosis includes life-threatening toxidrome such as anticholinergic syndrome, serotonin syndrome, sympathomimetic, opioid induced, among others. Also includes co-ingestions, acidosis, intracranial process such as mass, hemorrhage, or CVA. Patient evaluated to determine if there is adequate GCS to maintain their airway as well as for hemodynamic stability. Patient requesting discharge home upon arrival to the emergency department. He has capacity to make decisions and is stable for discharge at this time. Discussed use of Narcan and the new strains of drugs that are being cut with heroin on the street recently. He understands the danger of using heroin at this time. Discharged in stable condition. Differential Diagnosis Differential Diagnoses: The differential diagnosis associated with the presentation includes (As above) Admission/Observation Consideration of admission/observation: Escalation of care including admission/observation considered Prescription Management I considered prescription management with: Other (Narcan) Chronic Conditions Patient?s care impacted by: Other (Substance use disorder, housing and security) Social Determinants Patient?s care significantly limited by Social Determinants of Health including: Inadequate housing, Low income, Alcoholism and drug addiction in family and Problems related to primary support group Discharge Plan Discharge Clinical Impression: Opioid use disorder, Accidental overdose Patient Disposition: Home, Self-Care Instructions: Opioid Use Disorder (ED) Additional Instructions: Opiate use disorder You were seen in our Emergency Department today for treatment of opiate use disorder. You may have been dosed with medication for opiate use disorder (MOUD) in the form of suboxone or methadone. You may experience feeling some withdrawal symptoms and this is normal. The? dose in the Emergency Department is a starting dose and meant to be titrated up once you follow up with a clinic. Please do not feel discouraged, it is a process. The nurse has reviewed with you where to follow up and what information to bring with you, to continue treatment. You also may have been given naloxone (narcan) to take home with you. This medication is used to potentially treat opiate overdose. If you decide you want to stop or cut down on how much you?re using, you can call or walk into our outpatient Addiction Treatment office: [facility] (M-F 9am-5p) [address], [address] [phone] You may have been provided with safer injection?items, please take time to take care of YOU and your health. Use new supplies whenever possible to lessen the chances of infections and other illnesses.? ?If you need more supplies, please go [facility],? [address] [place] [address] OR you can call or text to coordinate delivery of safer supplies. You were also provided a list of several treatment providers in the area.? If you experience any worsening symptoms you cannot control please return to the ED or call 911. Please follow up at your next appointment. Things to look out for are fevers, chest pain, shortness of breath, severe pain, dizziness, fainting or any other concerns. Prescriptions: No Action No Known Home Meds Interventions: ED Discharge Assessment Last Done: 11/30/24 20:10 Discharge Date/Time: 11/30/24 20:10 Print Language: Arabic
[2024-11-30] MEDS: Naloxone HCl Nasal TAKE HOME 4 MG SPRAY 8 MG NOSTRILALT (19:57)
[2024-11-30 20:09] VITALS: BP 136/89; PULSE 89; RESP 18; TEMP 36.6; O2SAT 92
[2024-11-30 20:10] VITALS: BP 136/89; PULSE 89; RESP 18; TEMP 36.6; O2SAT 92
== END 2024-11-30 20:10 | disposition home or self-care (01) ==
PROVIDERS: Emergency Provider Emergency Medicine
DX: T65.91XA Toxic effect of unspecified substance, accidental (unintentional), initial encounter (principal); Y92.9 Unspecified place or not applicable; F11.90 Opioid use, unspecified, uncomplicated
CPT/HCPCS: 99283